=== PATIENT | female | born 1990 | race Two or more races ===

== ENCOUNTER 2016-03-23 14:21 | Inpatient (IN) | payer MEDICAID ==
[2016-03-23] MEDS ORDERED: RINGERS SOLUTION,LACTATED 1,000 ML IV PRN ×2 (15:22→17:14)
[2016-03-23 15:50] LABS: APPEARANCE,URINE CLEAR; BILIRUBIN,URINE NEGATIVE (NEGATIVE); GLUCOSE, URINE NEGATIVE (NEGATIVE); KETONES,URINE NEGATIVE (NEGATIVE); LEUKOCYTE ESTERASE,URINE LARGE (NEGATIVE); NITRITE,URINE NEGATIVE (NEGATIVE); PROTEIN,URINE NEGATIVE (NEGATIVE); URINE SPECIFIC GRAVITY 1.006; UROBILINOGEN,URINE NEGATIVE mg/dL (<2.0)
[2016-03-23 15:52] LABS: HEMATOCRIT 36.2 % (36.0-47.0); HEMOGLOBIN 12.4 g/dL (12.0-15.5); MEAN CORPUSCULAR HEMOGLOBIN 32.3 pg (27.0-33.4); MEAN CORPUSCULAR HGB CONC 34.3 g/dL (32.0-36.0); MEAN CORPUSCULAR VOLUME 94 fl (80-97); RED BLOOD COUNT 3.84 10^6/uL (3.72-5.28); RED CELL DISTRIBUTION WIDTH 12.8 % (11.5-14.0); WHITE BLOOD COUNT 9.3 10^3/uL (4.0-10.5)
--- NOTE | 2016-03-23 16:00 | L&D Flow Sheet ---
LD Flowsheet Datetime Report Generated by CPN: 03/23/2016 16:00 Datetime: 03/23/2016 15:58 Vital Signs NBP Sys/Monika/Mean (mmHg): 117 (QS system process) : 73 (QS system process) : 89 (QS system process) Pulse: 70 (QS system process) Datetime: 03/23/2016 15:28 Vital Signs NBP Sys/Monika/Mean (mmHg): 121 (QS system process) : 75 (QS system process) : 93 (QS system process) Pulse: 77 (QS system process) Datetime: 03/23/2016 14:58 Vital Signs NBP Sys/Monika/Mean (mmHg): 111 (QS system process) : 71 (QS system process) : 86 (QS system process) Pulse: 90 (QS system process)
[2016-03-23 16:06] LABS: URINE BARBITURATES SCREEN NEGATIVE; URINE METHADONE SCREEN NEGATIVE; URINE OPIATES LOW NEGATIVE; URINE PHENCYCLIDINE SCREEN NEGATIVE
--- NOTE | 2016-03-23 17:12 | L&D Progress Notes ---
PROGRESS NOTES Datetime Report Generated by CPN: 03/23/2016 17:12 PROGRESS NOTE Impression Other: IOL-stable Procedures: Sterile Vag Exam Plan: Induction Plan Other: spencer bulb Informed Consent Obtained: Vaginal Delivery; Induction of Labor; Risks, Benefits and Alternatives Discussed Informed Consent Obtained- Other: spencer bulb Vital Signs : Reviewed; Within Normal Limits Vital Signs Comments: elevated BP while in the middle of inserting spencer bulb Comment: S: pt. comfortable, agreeable to plan of care, no questions at this time O: as stated above A: IOL for IUGR-stable, Spencer bulb insertion-successful pt. tolerated well P: continue IOL, will start pitocin at 2x2x15, may have dinner, reasses as clinically indicated or earlier prn. VAGINAL EXAM Dilatation: 1 Dilatation: 1 Effacement: 50 Effacement: 50 Station: -1 Station: -2 Contractions: irreg Contractions: irreg MEMBRANES Membranes: Intact Membranes: Intact FETUS A Monitoring: External US FHR Category: Category I Estimated Weight (gm): 2557 Presentation: Vertex SIGNATURE SIGNATURE: [id number] Assignment: Geovanna Wells MD Signature: with User ID: Dennis : with User ID: Dennis
[2016-03-23] MEDS ORDERED: RINGERS SOLUTION,LACTATED 300 ML IV ONE (17:14)
[2016-03-23] MEDS ORDERED: DINOPROSTONE 10 MG VAGINAL INSERT.SR PV PRN (17:14)
[2016-03-23] MEDS ORDERED: OXYTOCIN/NORMAL SALINE 0 UNIT/0 ML RTUINJ ONE (17:28)
[2016-03-23 17:34] LABS: ALANINE AMINOTRANSFERASE 23 U/L (9-52); ALBUMIN 3.3 g/dL (3.5-5.0); ALKALINE PHOSPHATASE 146 U/L (38-126); ANION GAP 9 (5-19); ASPARTATE AMINO TRANSFERASE 34 U/L (14-36); BILIRUBIN,TOTAL 0.6 mg/dL (0.2-1.3); BLOOD UREA NITROGEN 6 mg/dL (7-20); CALCIUM 9.2 mg/dL (8.4-10.2); CARBON DIOXIDE 21 mmol/L (22-30); CHLORIDE 107 mmol/L (98-107); GLUCOSE 107 mg/dL (75-110); POTASSIUM 4.3 mmol/L (3.6-5.0); SODIUM 137.1 mmol/L (137-145); TOTAL PROTEIN 6.1 g/dL (6.3-8.2)
[2016-03-23] MEDS: OXYTOCIN/NORMAL SALINE 1,000 ML IV PRN ×2 (17:49→18:56)
--- NOTE | 2016-03-23 18:00 | L&D Flow Sheet ---
LD Flowsheet Datetime Report Generated by CPN: 03/23/2016 18:00 Datetime: 03/23/2016 17:59 NBP Sys/Monika/Mean (mmHg): 132 (QS system process) : 88 (QS system process) : 105 (QS system process) Pulse: 75 (QS system process) LaborFlag: Antepartum (QS system process) Datetime: 03/23/2016 17:50 Pitocin (milliunit): Pitocin Started (milliunits) @ 2 (Jennifer Willson RN) Datetime: 03/23/2016 17:27 NBP Sys/Monika/Mean (mmHg): 129 (QS system process) : 90 (QS system process) : 105 (QS system process) Pulse: 77 (QS system process) LaborFlag: Antepartum (QS system process) Datetime: 03/23/2016 17:02 Stage of : Antepartum (Laura Otto RN) Respirations: 18 (Laura Otto RN) Monitor Mode: External (Laura Otto RN) Frequency (min): IRREG (Laura Otto RN) Quality: Mild (Laura Otto RN) Duration (sec): 60-80 (Laura Otto RN) Resting Tone (Palpate): Relaxed (Laura Otto RN) Monitor Mode: External US (Laura Otto RN) FHR Baseline Rate : 135 (Laura Otto RN) FHR Baseline Changes: No Baseline Change (Laura Otto RN) Variability: Moderate 6-25 bpm (Laura Otto, LINDA) Accelerations: 15X15 (Laura Otto, RN) Decelerations: None (Laura Otto, LINDA) Pain Presence: None/Denies (Laura Otto RN) Pain Type: N/A (Laura Otto, LINDA) Pain Relief Measures: Comfort Measures (Laura Otto RN) Pain Coping: Talking Through Contractions (Laura Otto RN) IV/Blood Work: IV Infusing per Order (Laura Otto, LINDA) Patient Position/Activity: Right Tilt; Semi-Fowlers (Laura Otto, LINDA) Comfort Measures: Family Support (Laura Otto, LINDA) Communication: RN at Bedside; RN Reviewed Strip (Laura Otto RN) LaborFlag: Antepartum (QS system process) Datetime: 03/23/2016 16:57 NBP Sys/Monika/Mean (mmHg): 128 (QS system process) : 93 (QS system process) : 107 (QS system process) Pulse: 72 (QS system process) LaborFlag: Antepartum (QS system process) Datetime: 03/23/2016 16:32 Monitor Interventions for UA: [place] Adjusted (Laura Otto RN) Resting Tone (Palpate): Relaxed (Laura Otto RN) Monitor Mode: External US (Laura Otto RN) Monitor Interventions for FHR: Ultrasound Adjusted (Laura Otto RN) FHR Baseline Rate : 145 (Laura Otto RN) Variability: Moderate 6-25 bpm (Laura Otto, LINDA) Accelerations: 15X15 (Laura Otto RN) Decelerations: None (Laura Otto RN) Pain Scale: 0 (Sean Martin RN) Pain Presence: None/Denies (Sean Martin RN) Pain Type: N/A (Sean Martin RN) Pain Goal: 1 (Laura Otto RN) Pain Relief Measures: Comfort Measures (Laura Otto RN) Pain Coping: Talking Through Contractions (Laura Otto RN) Dilatation (cm): 1.0 (Laura Otto RN) Effacement (%): 50 (Laura Otto RN) Station: -2 (Laura Otto RN) Exam by: Rambo PAT CNM (Laura Otto, LINDA) Membrane Status: Intact (Luara Otto RN) Vaginal Bleeding: None (Sean Martin RN) Dilatation (cm): 1-2 cm (Laura Otto RN) Effacement: 40-50_ effaced (Laura Otto RN) Station: minus 2 (Laura Otto RN) Consistency: Soft (Laura Otto RN) Position: Posterior (Laura Otto RN) Total Villegas's Score: 5 (QS system process) : 5-8 = Small percentage of induction failure (QS system process) Level of Consciousness: Fully Conscious (Sean Martin RN) DTR's/Clonus: DTRs 1+; No Clonus (Laura Otto, LINDA) Headache: Denies (Sean Martin RN) Breath Sounds, Left: Clear and Equal (Laura Otto RN) Breath Sounds, Right: Clear and Equal (Sean Martin, RN) Nausea/Vomiting: Denies (Sean Martin, RN) RUQ Epigastric Pain: Denies (Sean Martin, RN) IV/Blood Work: IV Infusing per Order (Laura Otto, RN) Oxygen Method: Room Air (Laura Otto, RN) Patient Position/Activity: Right Tilt; Semi-Fowlers (Laura Otto, RN) Comfort Measures: Family Support (Laura Otto, LINDA) I/O Interventions: EATING DINNER (Laura Otto, RN) Instructional Method: Verbal; Patient Instructed; Family/Support Person Instructed; Verbalized Understanding (Laura Otto, LINDA) Plan of Care: Plan of Care Discussed; Vaginal Delivery; Induction (Laura Otto, RN) Unit Routine: [place] to Room; Call Smalls; Bed; Visiting Policy; Waiting Areas; Phone/Cell Phone Use; Photography; Unit Personnel; Consents Signed; Handwashing; Flu/Illness Precautions; Monitoring; IV Pumps; Safety/Fall Risk Prevention; Diet/Nutrition Services; Bathroom Privileges (Laura Otto, LINDA) Labor/Induction: Labor Stages; Induction (Laura Otto, RN) Pain Management: Epidural; PRN Medications; Pain Scale/Goals; Comfort Measures (Laura Otto, LINDA) Medications: Pitocin (Laura Otto, RN) Related: Common Discomforts of ; Maternal Physical Changes; Maternal Emotional Changes; Nutrition; Hydration; Activity and Rest (Laura Otto, LINDA) LaborFlag: Antepartum (QS system process) Datetime: 03/23/2016 16:30 Stage of : Antepartum (Laura Otto RN) Respirations: 16 (Laura Otto RN) Monitor Mode: External (Laura Otto RN) Monitor Interventions for UA: [place] Adjusted (Laura Otto, LINDA) Frequency (min): IRREG (Laura Otto RN) Quality: Mild (Laura Otto RN) Duration (sec): 60-80 (Laura Otto, LINDA) Resting Tone (Palpate): Relaxed (Laura Otto, LINDA) Monitor Mode: External US (Laura Otto RN) FHR Baseline Rate : 145 (Laura Otto RN) FHR Baseline Changes: No Baseline Change (Laura Otto, LINDA) Variability: Moderate 6-25 bpm (Laura Otto, LINDA) Accelerations: 15X15 (Laura Otto, LINDA) Decelerations: None (Laura Otto, LINDA) Pain Presence: None/Denies (Laura Otto, LINDA) Pain Type: N/A (Laura Otto RN) Pain Relief Measures: Comfort Measures (Laura Otto RN) Pain Coping: Talking Through Contractions (Laura Otto, LINDA) Patient Position/Activity: Right Tilt; Semi-Fowlers (Laura Otto, LINDA) Comfort Measures: Family Support (Laura Otto, LINDA) Communication: RN at Bedside; RN Reviewed Strip (Laura Otto RN) LaborFlag: Antepartum (QS system process) Datetime: 03/23/2016 16:29 NBP Sys/Monika/Mean (mmHg): 133 (QS system process) : 85 (QS system process) : 104 (QS system process) Pulse: 75 (QS system process) LaborFlag: Antepartum (QS system process) Datetime: 03/23/2016 16:28 NBP Sys/Monika/Mean (mmHg): 138 (QS system process) : 103 (QS system process) : 117 (QS system process) Pulse: 80 (QS system process) LaborFlag: Antepartum (QS system process) Datetime: 03/23/2016 16:20 Stage of : Antepartum (Laura Otto RN) IV/Blood Work: IV Infusing per Order (Laura Otto, RN) Procedures: Sterile Vag Exam (Laura Otto, RN) Patient Care Comments: COOK JAMES BULB INSERTED WITH 80 ML N/S IN EACH BULB (Laura Otto, RN) Communication: RN at Bedside; RN Reviewed Strip; Provider at Bedside (Laura Otto, RN) Datetime: 03/23/2016 16:10 I/O Interventions: Up to BR (Laura Otto, LINDA)
[2016-03-23 18:02] LABS: CHLAM PCR NOT DETECTED (NOT DETECT)
--- NOTE | 2016-03-23 18:51 | L&D Progress Notes ---
PROGRESS NOTES Datetime Report Generated by CPN: 03/23/2016 18:50 PROGRESS NOTE Impression Other: IOL-stable Procedures: Sterile Vag Exam Plan: Continue Present Management Informed Consent Obtained: Induction of Labor; Risks, Benefits and Alternatives Discussed Vital Signs : Reviewed Vital Signs Comments: mild range during contractions Comment: S: breathing with contractions, desires something for pain O: pit @ 8mu/min, see others above A: IOL-stable, progressing, spencer bulb still in place P: continue IOL, epidural prn VAGINAL EXAM Dilatation: 3 Effacement: 70 Station: -2 Contractions: 2-3 MEMBRANES Membranes: Intact FETUS A Monitoring: External US FHR Category: Category I FETUS C SIGNATURE: [id number] Assignment: Geovanna Wells MD Signature: with User ID: CaValencia : with User ID: CaValencia
[2016-03-23] MEDS ORDERED: BUPIVACAINE HCL 0.25 % INJ/PF (2.5 MG/1 ML) 30 ML VIAL ONE (19:45)
[2016-03-23] MEDS ORDERED: FENTANYL/BUPIVACAINE/NS/PF 200 MCG/100 ML RTUINJ EPI ONE (19:45)
[2016-03-23] MEDS ORDERED: EPHEDRINE SULFATE INJ 50 MG/1 ML AMPULE ONE (19:45)
--- NOTE | 2016-03-23 20:01 | L&D Flow Sheet ---
LD Flowsheet Datetime Report Generated by CPN: 03/23/2016 20:00 Datetime: 03/23/2016 19:37 I/O Interventions: Up to BR (Deya Ledgerwood, RN) Communication: RN at Bedside (Deya Ledgerwood, RN) Datetime: 03/23/2016 19:29 NBP Sys/Monika/Mean (mmHg): 135 (QS system process) : 86 (QS system process) : 107 (QS system process) Pulse: 82 (QS system process) Pain Scale: 5 (Annotations: 5 out 5 during contractions) (Deya Reyes RN) Pain Presence: Intermittent (Deya Reyes RN) Pain Type: Contraction (Deya Reyes RN) Pain Location: Abdomen (Deya Reyes RN) Pain Relief Measures: pt is bolusing for Epidural (Deya Reyes RN) Pain Coping: Breathing Through Contractions (Deya Reyes RN) Vaginal Bleeding: None (Deya Reyes RN) Level of Consciousness: Fully Conscious (Deya Reyes RN) DTR's/Clonus: DTRs 2+; No Clonus (Deya Reyes RN) Headache: Denies (Deya Reyes RN) Breath Sounds, Left: Clear and Equal (Deya Reyes RN) Breath Sounds, Right: Clear and Equal (Deya Reyes RN) Nausea/Vomiting: Denies (Deya Reyes RN) RUQ Epigastric Pain: Denies (Deya Reyes RN) Instructional Method: Demo; Verbal; Patient Instructed (Deya Reyes RN) Plan of Care: Plan of Care Discussed (Deya Reyes RN) Unit Routine: Safety/Fall Risk Prevention (Deya Reyes RN) Labor/Induction: Induction (Deya Reyes RN) Pain Management: Epidural (Deya Reyes RN) LaborFlag: Labor (QS system process) Datetime: 03/23/2016 19:22 Communication Comments: report received from Bob Otto RN (Deya Reyes RN) Datetime: 03/23/2016 19:20 Stage of : Labor (Laura Otto RN) Communication: RN at Bedside; RN Reviewed Strip (Laura Otto RN) Communication Comments: REPORT TO Erik REYES RN- CARE RELINQUISHED (Laura Otto RN) Datetime: 03/23/2016 19:14 Stage of : Labor (Laura Otto RN) Respirations: 20 (Laura Otto RN) Monitor Mode: External (Laura Otto RN) Monitor Interventions for UA: [place] Adjusted (Laura Otto RN) Frequency (min): 2-2.5 (Laura Otto, LINDA) Quality: Moderate (Laura Otto RN) Duration (sec): 60-70 (Laura Otto RN) Resting Tone (Palpate): Relaxed (Laura Otto RN) Contraction Comments: TOCO REPLACED (Laura Otto RN) Monitor Mode: External US (Laura Otto RN) Monitor Interventions for FHR: Ultrasound Adjusted (Laura Otto RN) FHR Baseline Rate : 140 (Laura Otto RN) FHR Baseline Changes: No Baseline Change (Laura Otto RN) Variability: Moderate 6-25 bpm (Laura Otto RN) Accelerations: 10X10 (Laura Otto, RN) Decelerations: None (Laura Otto, RN) Pain Relief Measures: Comfort Measures (Laura Otto RN) Pain Coping: Breathing Through Contractions (Laura Otto RN) Pitocin (milliunit): Pitocin Remains (milliunits) @ 8 (Laura Otto, RN) IV/Blood Work: New IV Bag Hung (Laura Otto, LINDA) Patient Position/Activity: Right Tilt; Low Fowlers (Laura Otto, RN) Comfort Measures: Breathing/Relaxation; Coaching; Family Support (Laura Otto, LINDA) Communication: RN at Bedside; RN Reviewed Strip (Laura Otto RN) LaborFlag: Labor (QS system process) Datetime: 03/23/2016 19:02 Stage of : Labor (Laura Otto, LINDA) Respirations: 20 (Laura Otto, LINDA) Monitor Mode: External (Laura Otto RN) Monitor Interventions for UA: [place] Adjusted (Laura Otto RN) Frequency (min): 2-2.5 (Laura Otto RN) Quality: Moderate (Laura Roz Roulund, RN) Duration (sec): 60-70 (Laura Otto, RN) Resting Tone (Palpate): Relaxed (Laura Otto, RN) Monitor Mode: External US (Laura Otto RN) Monitor Interventions for FHR: Ultrasound Adjusted (Laura Otto RN) FHR Baseline Rate : 140 (Laura Otto RN) FHR Baseline Changes: No Baseline Change (Laura Otto RN) Variability: Moderate 6-25 bpm (Laura Otto, LINDA) Accelerations: 15X15 (Laura Otto, RN) Decelerations: None (Laura Otto, RN) Pain Scale: 4 (Laura Otto, LINDA) Pain Presence: Intermittent (Laura Otto RN) Pain Type: Contraction (Laura Otto, LINDA) Pain Location: Abdomen (Laura Otto, RN) Pain Relief Measures: Comfort Measures (Laura Otto RN) Pain Coping: Breathing Through Contractions (Laura Otto, LINDA) Pitocin (milliunit): Pitocin Remains (milliunits) @ 8 (Laura Otto, RN) Patient Position/Activity: Right Tilt; Semi-Fowlers (Laura Otto, RN) Comfort Measures: Breathing/Relaxation; Coaching; Family Support (Laura Otto, RN) I/O Interventions: Up to BR (Laura Otto, LINDA) Instructional Method: Verbal; Patient Instructed; Family/Support Person Instructed; Verbalized Understanding (Laura Otto, RN) Pain Management: Epidural (Laura Otto, RN) Communication: RN at Bedside; RN Reviewed Strip (Laura Otto, RN) LaborFlag: Labor (QS system process) Datetime: 03/23/2016 19:00 NBP Sys/Monika/Mean (mmHg): 146 (QS system process) : 107 (QS system process) : 123 (QS system process) Pulse: 82 (QS system process) LaborFlag: Labor (QS system process) Datetime: 03/23/2016 18:50 Stage of : Labor (Laura Otto RN) IV/Blood Work: IV Bolus Started (Laura Otto RN) Procedure Type: EPIDURAL (Laura Otto RN) Procedure Verify: Correct Patient Identity; Agreement on Procedure to be Done; Relevant Images and Results are Properly Labeled and Displayed (Laura Otto RN) Anesthesia Plans: Epidural (Laura Otto RN) Communication: RN at Bedside; Provider Orders Received (Laura Otto RN) Notification Reason: Status Update; Labor Status; Pain (Laura Otto RN) Datetime: 03/23/2016 18:45 Stage of : Labor (Laura Otto RN) Respirations: 20 (Laura Otto RN) Monitor Mode: External (Laura Otto RN) Monitor Interventions for UA: [place] Adjusted (Laura Otto RN) Frequency (min): 2-2.5 (Laura Otto RN) Quality: Moderate (Laura Otto RN) Duration (sec): 60-70 (Laura Otto RN) Resting Tone (Palpate): Relaxed (Laura Otto RN) Monitor Mode: External US (Laura Otto RN) FHR Baseline Rate : 140 (Laura Otto RN) FHR Baseline Changes: No Baseline Change (Laura Otto RN) Variability: Moderate 6-25 bpm (Laura Otto RN) Accelerations: 15X15 (Laura Otto RN) Decelerations: None (Laura Otto RN) Pain Scale: 4 (Laura Otto RN) Pain Presence: Intermittent (Laura Otto RN) Pain Type: Contraction (Laura Otto RN) Pain Location: Abdomen (Laura Otto RN) Pain Relief Measures: Comfort Measures (Laura Otto RN) Pain Coping: Breathing Through Contractions; Requesting Pain Medication or Epidural (Laura Otto RN) Dilatation (cm): 2.5 (Laura Otto RN) Effacement (%): 70 (Laura Otto RN) Station: -2 (Laura Otto RN) Exam by: Rambo PAT CNM (Laura Otto, LINDA) Membrane Status: Intact (Laura Otto RN) Vaginal Bleeding: Normal Show (Laura Otto RN) Cervix, Consistency: Soft (Laura Otto RN) Cervix, Position: Midposition (Laura Otto RN) Pitocin (milliunit): Pitocin Remains (milliunits) @ 8 (Laura Otto RN) IV/Blood Work: Labs Drawn with IV Start (Laura Otto RN) Patient Position/Activity: Right Tilt; High Fowlers (Laura Otto, LINDA) Comfort Measures: Breathing/Relaxation; Coaching; Family Support (Laura Otto RN) Communication: RN at Bedside; RN Reviewed Strip; Provider at Bedside (Laura Otto RN) LaborFlag: Labor (QS system process) Datetime: 03/23/2016 18:38 NBP Sys/Monika/Mean (mmHg): 143 (QS system process) : 96 (QS system process) : 117 (QS system process) Pulse: 73 (QS system process) LaborFlag: Labor (QS system process) Datetime: 03/23/2016 18:30 Stage of : Labor (Laura Otto RN) Respirations: 18 (Laura Roz Roulund, RN) Monitor Mode: External (Laura Otto, LINDA) Monitor Interventions for UA: [place] Adjusted (Laura Otto, RN) Frequency (min): 2-3 (Laura Otto RN) Quality: Moderate (Laura Otto RN) Duration (sec): 60-70 (Laura Otto, RN) Resting Tone (Palpate): Relaxed (Laura Otto, RN) Monitor Mode: External US (Laura Otto RN) Monitor Interventions for FHR: Ultrasound Adjusted (Laura Otto RN) FHR Baseline Rate : 135 (Laura Otto, LINDA) FHR Baseline Changes: No Baseline Change (Laura Otto RN) Variability: Moderate 6-25 bpm (Laura Otto, LINDA) Accelerations: 15X15 (Laura Otto, LINDA) Decelerations: None (Laura Otto RN) Pain Scale: 2 (Laura Otto RN) Pain Presence: Intermittent (Laura Otto RN) Pain Type: Contraction (Laura Otto, LINDA) Pain Location: Abdomen (Laura Otto, LINDA) Pain Relief Measures: Comfort Measures (Laura Otto RN) Pain Coping: Breathing Through Contractions (Laura Otto, LINDA) Pitocin (milliunit): Pitocin Increased to (milliunits) @ 8 (Laura Otto, RN) Patient Position/Activity: Right Tilt; High Fowlers (Laura Otto, RN) Comfort Measures: Breathing/Relaxation; Family Support (Laura Otto, RN) I/O Interventions: Up to BR (Laura Otto, LINDA) Communication: RN at Bedside; RN Reviewed Strip (Laura Otto RN) LaborFlag: Labor (QS system process) Datetime: 03/23/2016 18:29 NBP Sys/Monika/Mean (mmHg): 151 (QS system process) : 108 (QS system process) : 122 (QS system process) Pulse: 81 (QS system process) LaborFlag: Labor (QS system process) Datetime: 03/23/2016 18:15 Stage of : Labor (Laura Otto RN) Respirations: 18 (Laura Otto RN) Monitor Mode: External (Laura Otto RN) Monitor Interventions for UA: [place] Adjusted (Laura Otto RN) Frequency (min): 2-4 (Laura Otto RN) Quality: Moderate (Laura Otto RN) Duration (sec): 60-70 (Laura Otto RN) Resting Tone (Palpate): Relaxed (Laura Otto RN) Monitor Mode: External US (Laura Otto RN) Monitor Interventions for FHR: Ultrasound Adjusted (Laura Otto RN) FHR Baseline Rate : 135 (Laura Otto RN) FHR Baseline Changes: No Baseline Change (Laura Otto RN) Variability: Moderate 6-25 bpm (Laura Otto RN) Accelerations: 15X15 (Laura Otto, LINDA) Decelerations: None (Laura Otto, RN) Pain Scale: 2 (Laura Otto, LINDA) Pain Presence: Intermittent (Laura Otto, LINDA) Pain Type: Contraction (Laura Otto, LINDA) Pain Location: Abdomen (Laura Otto, RN) Pain Relief Measures: Comfort Measures (Laura Otto, RN) Pain Coping: Breathing Through Contractions (Laura Otto, LINDA) Pitocin (milliunit): Pitocin Increased to (milliunits) @ 6 (Laura Otto, RN) IV/Blood Work: IV Infusing per Order (Laura Otto, LINDA) Patient Position/Activity: Right Tilt; High Fowlers (Laura Otto, RN) Comfort Measures: Breathing/Relaxation; Coaching; Family Support (Laura Otto, LINDA) Instructional Method: Verbal; Patient Instructed; Family/Support Person Instructed; Verbalized Understanding (Laura Otto, LINDA) Pain Management: Pain Scale/Goals; Comfort Measures (Laura Otto, RN) Teaching Comments: breathing _ relaxation techniques (Laura Otto, LINDA) Communication: RN at Bedside; RN Reviewed Strip (Laura Otto, LINDA) LaborFlag: Labor (QS system process) Datetime: 03/23/2016 18:00 Stage of : Antepartum (Laura Otto RN) Respirations: 18 (Laura Otto, RN) Monitor Mode: External (Laura Otto RN) Frequency (min): IRREG (Laura Otto RN) Quality: Mild (Laura Otto RN) Duration (sec): 60-80 (Laura Otto RN) Resting Tone (Palpate): Relaxed (Laura Otto RN) Monitor Mode: External US (Laura Otto RN) FHR Baseline Rate : 135 (Laura Otto RN) FHR Baseline Changes: No Baseline Change (Laura Otto RN) Variability: Moderate 6-25 bpm (Laura Otto RN) Accelerations: 15X15 (Laura Otto RN) Decelerations: None (Laura Otto RN) Pain Scale: 0 (Laura Otto RN) Pain Presence: None/Denies (Laura Otto RN) Pain Type: N/A (Laura Otto RN) Pain Relief Measures: Comfort Measures (Laura Otto RN) Pain Coping: Talking Through Contractions (Laura Otto RN) Pitocin (milliunit): Pitocin Increased to (milliunits) @ 4 (Laura Otto, LINDA) IV/Blood Work: IV Infusing per Order (Laura Otto, LINDA) Patient Position/Activity: Right Tilt; High Fowlers (Laura Otto, LINDA) Comfort Measures: Family Support (Laura Otto RN) Communication: RN at Bedside; RN Reviewed Strip (Laura Otto RN) LaborFlag: Antepartum (QS system process)
--- NOTE | 2016-03-23 22:00 | L&D Flow Sheet ---
LD Flowsheet Datetime Report Generated by CPN: 03/23/2016 22:00 Datetime: 03/23/2016 21:57 NBP Sys/Monika/Mean (mmHg): 117 (QS system process) : 72 (QS system process) : 90 (QS system process) Pulse: 83 (QS system process) LaborFlag: Labor (QS system process) Datetime: 03/23/2016 21:43 NBP Sys/Monika/Mean (mmHg): 120 (QS system process) : 78 (QS system process) : 92 (QS system process) Pulse: 74 (QS system process) Respirations: 15 (Deya Hayward RN) LaborFlag: Labor (QS system process) Datetime: 03/23/2016 21:41 Membrane Status: Ruptured (Deya Hayward RN) Membranes Rupture Method: Artificial (Deya Hayward RN) Amniotic Fluid Color: Clear (Deya Hayward RN) Amniotic Fluid Amount: Moderate (Deya Hayward RN) Amniotic Fluid Odor: Normal (Deya Hayward RN) Datetime: 03/23/2016 21:40 Dilatation (cm): 6.5 (Deya Hayward RN) Effacement (%): 75 (Deya Hayward RN) Station: -2 (Deya Hayward RN) Exam by: Dr Wells (Deya Hayward RN) Patient Care Comments: Wade Bulb is out. (Deya Hayward RN) Datetime: 03/23/2016 21:30 Monitor Mode: External; Palpation (Deya Ledgerwood, RN) Frequency (min): 2-2.5 (Deya Ledgerwood, RN) Quality: Moderate (Deya Ledgerwood, RN) Duration (sec): 50-70 (Deya Ledgerwood, RN) Duration Criteria: Less than Two 120 Second Contractions (Deya Ledgerwood, RN) Pattern: Normal: <= 5 Contractions in 10 Minutes (Deya Ledgerwood, RN) Resting Tone (Palpate): Relaxed (Deya Ledgerwood, RN) Monitor Mode: External US (Deya Ledgerwood, RN) FHR Baseline Rate : 135 (Deya Ledgerwood, RN) FHR Baseline Changes: No Baseline Change (Deya Ledgerwood, RN) Variability: Moderate 6-25 bpm (Deya Ledgerwood, RN) Accelerations: 15X15 (Deya Ledgerwood, RN) Decelerations: None (Deya Ledgerwood, RN) Pitocin (milliunit): Pitocin Remains (milliunits) @ 8 (Deya Ledgerwood, RN) Datetime: 03/23/2016 21:29 NBP Sys/Monika/Mean (mmHg): 126 (QS system process) : 74 (QS system process) : 93 (QS system process) Pulse: 72 (QS system process) LaborFlag: Labor (QS system process) Datetime: 03/23/2016 21:15 Monitor Mode: External; Palpation (Deya Ledgerwood, RN) Frequency (min): 1.5-3 (Deya Ledgerwood, RN) Quality: Moderate (Deya Ledgerwood, RN) Duration (sec): 40-60 (Edya Ledgerwood, RN) Duration Criteria: Less than Two 120 Second Contractions (Deya Ledgerwood, RN) Pattern: Normal: <= 5 Contractions in 10 Minutes (Deya Ledgerwood, RN) Resting Tone (Palpate): Relaxed (Deya Ledgerwood, RN) Monitor Mode: External US (Deya Ledgerwood, RN) FHR Baseline Rate : 140 (Deya Ledgerwood, RN) FHR Baseline Changes: No Baseline Change (Deya Ledgerwood, RN) Variability: Moderate 6-25 bpm (Deya Ledgerwood, RN) Accelerations: 15X15 (Deya Ledgerwood, RN) Decelerations: None (Deya Ledgerwood, RN) Pitocin (milliunit): Pitocin Remains (milliunits) @ 8 (Deya Ledgerwood, RN) Datetime: 03/23/2016 21:11 NBP Sys/Monika/Mean (mmHg): 130 (QS system process) : 78 (QS system process) : 99 (QS system process) Pulse: 69 (QS system process) LaborFlag: Labor (QS system process) Datetime: 03/23/2016 21:06 NBP Sys/Monika/Mean (mmHg): 131 (QS system process) : 67 (QS system process) : 91 (QS system process) Pulse: 72 (QS system process) LaborFlag: Labor (QS system process) Datetime: 03/23/2016 21:00 NBP Sys/Monika/Mean (mmHg): 125 (QS system process) : 73 (QS system process) : 94 (QS system process) Pulse: 74 (QS system process) Monitor Mode: External; Palpation (Deya Hayward RN) Frequency (min): 2.5-3.5 (Deya Ledgerwood, RN) Quality: Moderate (Deya Ledgerwood, RN) Duration (sec): 40-60 (Deya Ledgerwood, RN) Duration Criteria: Less than Two 120 Second Contractions (Deya Ledgerwood, RN) Pattern: Normal: <= 5 Contractions in 10 Minutes (Deya Ledgerwood, RN) Resting Tone (Palpate): Relaxed (Deya Ledgerwood, RN) Monitor Mode: External US (Deya Ledgerwood, RN) FHR Baseline Rate : 135 (Deya Ledgerwood, RN) FHR Baseline Changes: No Baseline Change (Deya Ledgerwood, RN) Variability: Moderate 6-25 bpm (Deya Ledgerwood, RN) Accelerations: 15X15 (Deya Ledgerwood, RN) Decelerations: None (Deya Ledgerwood, RN) Pitocin (milliunit): Pitocin Remains (milliunits) @ 8 (Deya Ledgerwood, RN) LaborFlag: Labor (QS system process) Datetime: 03/23/2016 20:56 NBP Sys/Monika/Mean (mmHg): 122 (QS system process) : 67 (QS system process) : 89 (QS system process) Pulse: 63 (QS system process) LaborFlag: Labor (QS system process) Datetime: 03/23/2016 20:49 NBP Sys/Monika/Mean (mmHg): 129 (QS system process) : 60 (QS system process) : 86 (QS system process) Pulse: 58 (QS system process) LaborFlag: Labor (QS system process) Datetime: 03/23/2016 20:46 NBP Sys/Monika/Mean (mmHg): 131 (QS system process) : 61 (QS system process) : 88 (QS system process) Pulse: 58 (QS system process) LaborFlag: Labor (QS system process) Datetime: 03/23/2016 20:45 Monitor Mode: External; Palpation (Deya Hayward RN) Frequency (min): 2-2.5 (Deya Hayward RN) Quality: Moderate (Deya Hayward RN) Duration (sec): 50-60 (Deya Ledgerwood, RN) Duration Criteria: Less than Two 120 Second Contractions (Deya Ledgerwood, RN) Pattern: Normal: <= 5 Contractions in 10 Minutes (Deya Ledgerwood, RN) Resting Tone (Palpate): Relaxed (Deya Ledgerwood, RN) Monitor Mode: External US (Deya Ledgerwood, RN) FHR Baseline Rate : 135 (Deya Ledgerwood, RN) FHR Baseline Changes: No Baseline Change (Deya Ledgerwood, RN) Variability: Moderate 6-25 bpm (Deya Ledgerwood, RN) Accelerations: 15X15 (Deya Ledgerwood, RN) Decelerations: Variable (Deya Ledgerwood, RN) Pitocin (milliunit): Pitocin Remains (milliunits) @ 8 (Deya Ledgerwood, RN) Datetime: 03/23/2016 20:39 NBP Sys/Monika/Mean (mmHg): 117 (QS system process) : 54 (QS system process) : 78 (QS system process) Pulse: 67 (QS system process) LaborFlag: Labor (QS system process) Datetime: 03/23/2016 20:38 NBP Sys/Monika/Mean (mmHg): 122 (QS system process) : 58 (QS system process) : 83 (QS system process) Pulse: 65 (QS system process) LaborFlag: Labor (QS system process) Datetime: 03/23/2016 20:37 NBP Sys/Monika/Mean (mmHg): 118 (QS system process) : 57 (QS system process) : 82 (QS system process) Pulse: 63 (QS system process) LaborFlag: Labor (QS system process) Datetime: 03/23/2016 20:36 NBP Sys/Monika/Mean (mmHg): 118 (QS system process) : 58 (QS system process) : 83 (QS system process) Pulse: 58 (QS system process) LaborFlag: Labor (QS system process) Datetime: 03/23/2016 20:35 NBP Sys/Monika/Mean (mmHg): 124 (QS system process) : 57 (QS system process) : 82 (QS system process) Pulse: 64 (QS system process) LaborFlag: Labor (QS system process) Datetime: 03/23/2016 20:34 NBP Sys/Monika/Mean (mmHg): 115 (QS system process) : 56 (QS system process) : 80 (QS system process) Pulse: 55 (QS system process) LaborFlag: Labor (QS system process) Datetime: 03/23/2016 20:33 NBP Sys/Monika/Mean (mmHg): 112 (QS system process) : 55 (QS system process) : 77 (QS system process) Pulse: 54 (QS system process) LaborFlag: Labor (QS system process) Datetime: 03/23/2016 20:32 NBP Sys/Monika/Mean (mmHg): 127 (QS system process) : 65 (QS system process) : 90 (QS system process) Pulse: 52 (QS system process) LaborFlag: Labor (QS system process) Datetime: 03/23/2016 20:31 NBP Sys/Monika/Mean (mmHg): 118 (QS system process) : 63 (QS system process) : 84 (QS system process) Pulse: 67 (QS system process) LaborFlag: Labor (QS system process) Datetime: 03/23/2016 20:30 NBP Sys/Monika/Mean (mmHg): 138 (QS system process) : 73 (QS system process) : 96 (QS system process) Pulse: 71 (QS system process) Monitor Mode: External; Palpation (Deya Hayward, RN) Frequency (min): 2.5-4 (Deya Hayward, RN) Quality: Moderate (Deya Hayward, RN) Duration (sec): 60-70 (Deya Hayward, RN) Duration Criteria: Less than Two 120 Second Contractions (Deya Hayward, RN) Pattern: Normal: <= 5 Contractions in 10 Minutes (Deya Hayward, RN) Resting Tone (Palpate): Relaxed (Deya Hayward, RN) Monitor Mode: External US (Deya Hayward, RN) FHR Baseline Rate : 135 (Deya Hayward, RN) FHR Baseline Changes: No Baseline Change (Deya Hayward, RN) Variability: Moderate 6-25 bpm (Deya Hayward, RN) Accelerations: None (Deya Hayward, RN) Decelerations: None (Deya Hayward, RN) Pitocin (milliunit): Pitocin Remains (milliunits) @ 8 (Deya Hayward, RN) I/O Interventions: Wade Cath Inserted (Deya Hayward, RN) Patient Care Comments: 15 F by O Mainor MCKEON (Deya Hayward, RN) LaborFlag: Labor (QS system process) Datetime: 03/23/2016 20:29 NBP Sys/Monika/Mean (mmHg): 121 (QS system process) : 68 (QS system process) : 88 (QS system process) Pulse: 61 (QS system process) LaborFlag: Labor (QS system process) Datetime: 03/23/2016 20:28 Pulse: 65 (QS system process) SpO2 (%): 98 (QS system process) LaborFlag: Labor (QS system process) Datetime: 03/23/2016 20:27 NBP Sys/Monika/Mean (mmHg): 143 (QS system process) : 65 (QS system process) : 93 (QS system process) Pulse: 68 (QS system process) LaborFlag: Labor (QS system process) Datetime: 03/23/2016 20:25 NBP Sys/Monika/Mean (mmHg): 132 (QS system process) : 64 (QS system process) : 91 (QS system process) Pulse: 70 (QS system process) LaborFlag: Labor (QS system process) Datetime: 03/23/2016 20:24 NBP Sys/Monika/Mean (mmHg): 131 (QS system process) : 63 (QS system process) : 91 (QS system process) Pulse: 75 (QS system process) LaborFlag: Labor (QS system process) Datetime: 03/23/2016 20:23 NBP Sys/Monika/Mean (mmHg): 144 (QS system process) : 68 (QS system process) : 98 (QS system process) Pulse: 76 (QS system process) Pulse: 65 (QS system process) SpO2 (%): 98 (QS system process) Epidural Procedure: Test Dose (Deya Hayward RN) LaborFlag: Labor (QS system process) Datetime: 03/23/2016 20:22 NBP Sys/Monika/Mean (mmHg): 144 (QS system process) : 67 (QS system process) : 96 (QS system process) Pulse: 62 (QS system process) LaborFlag: Labor (QS system process) Datetime: 03/23/2016 20:21 Anesthesia Plans: Epidural (Deya Ledgerwood, RN) Epidural Positioning: Sitting (Deya Ledgerwood, RN) Datetime: 03/23/2016 20:18 Pulse: 62 (QS system process) SpO2 (%): 99 (QS system process) LaborFlag: Labor (QS system process) Datetime: 03/23/2016 20:16 NBP Sys/Monika/Mean (mmHg): 147 (QS system process) : 68 (QS system process) : 98 (QS system process) Pulse: 54 (QS system process) Communication: Provider at Bedside (Deya Hayward RN) Communication Comments: Dr Ragland at bedside (Deya Hayward RN) LaborFlag: Labor (QS system process) Datetime: 03/23/2016 20:15 NBP Sys/Monika/Mean (mmHg): 147 (QS system process) : 62 (QS system process) : 89 (QS system process) Pulse: 70 (QS system process) Monitor Mode: External; Palpation (Deya Hayward RN) Frequency (min): 1.5-2.5 (Deya Hayward RN) Quality: Moderate (Deya Hayward RN) Duration (sec): 70-80 (Deya Ledgerwood, RN) Duration Criteria: Less than Two 120 Second Contractions (Deya Ledgerwood, RN) Pattern: Normal: <= 5 Contractions in 10 Minutes (Deya Ledgerwood, RN) Resting Tone (Palpate): Relaxed (Deya Ledgerwood, RN) Monitor Mode: External US (Deya Ledgerwood, RN) FHR Baseline Rate : 145 (Deya Ledgerwood, RN) FHR Baseline Changes: No Baseline Change (Deya Ledgerwood, RN) Variability: Moderate 6-25 bpm (Deya Ledgerwood, RN) Accelerations: None (Deya Ledgerwood, RN) Decelerations: None (Deya Ledgerwood, RN) Pitocin (milliunit): Pitocin Remains (milliunits) @ 8 (Deya Ledgerwood, RN) LaborFlag: Labor (QS system process) Datetime: 03/23/2016 20:13 NBP Sys/Monika/Mean (mmHg): 136 (QS system process) NBP Sys/Monika/Mean (mmHg): 139 (QS system process) : 84 (QS system process) : 80 (QS system process) : 102 (QS system process) : 105 (QS system process) Pulse: 76 (QS system process) Pulse: 68 (QS system process) Pulse: 69 (QS system process) SpO2 (%): 96 (QS system process) LaborFlag: Labor (QS system process) Datetime: 03/23/2016 20:12 NBP Sys/Monika/Mean (mmHg): 151 (QS system process) : 73 (QS system process) : 102 (QS system process) Pulse: 64 (QS system process) LaborFlag: Labor (QS system process) Datetime: 03/23/2016 20:10 NBP Sys/Monika/Mean (mmHg): 150 (QS system process) : 72 (QS system process) : 104 (QS system process) Pulse: 71 (QS system process) LaborFlag: Labor (QS system process) Datetime: 03/23/2016 20:09 NBP Sys/Monika/Mean (mmHg): 149 (QS system process) : 75 (QS system process) : 105 (QS system process) Pulse: 70 (QS system process) LaborFlag: Labor (QS system process) Datetime: 03/23/2016 20:08 NBP Sys/Monika/Mean (mmHg): 175 (QS system process) : 82 (QS system process) : 111 (QS system process) Pulse: 59 (QS system process) Pulse: 77 (QS system process) SpO2 (%): 97 (QS system process) Procedure Verify: Correct Patient Identity; Correct Side and Site are Marked; Accurate Procedure Consent Form; Correct Patient Position (Deya Hayward RN) LaborFlag: Labor (QS system process) Datetime: 03/23/2016 20:06 NBP Sys/Monika/Mean (mmHg): 160 (QS system process) : 95 (QS system process) : 116 (QS system process) Pulse: 73 (QS system process) LaborFlag: Labor (QS system process) Datetime: 03/23/2016 20:05 NBP Sys/Monika/Mean (mmHg): 169 (QS system process) : 90 (QS system process) : 122 (QS system process) Pulse: 77 (QS system process) LaborFlag: Labor (QS system process) Datetime: 03/23/2016 20:04 NBP Sys/Monika/Mean (mmHg): 155 (QS system process) : 83 (QS system process) : 114 (QS system process) Pulse: 71 (QS system process) LaborFlag: Labor (QS system process) Datetime: 03/23/2016 20:03 Pulse: 71 (QS system process) SpO2 (%): 98 (QS system process) LaborFlag: Labor (QS system process) Datetime: 03/23/2016 20:01 Procedure Verify: Correct Patient Identity; Correct Side and Site are Marked; Accurate Procedure Consent Form; Correct Patient Position (Deya Hayward, RN) Anesthesia Plans: Epidural (Deya Ledgerwood, RN) Epidural Positioning: Sitting (Deya Ledgerwood, RN) Datetime: 03/23/2016 20:00 NBP Sys/Monika/Mean (mmHg): 136 (QS system process) : 79 (QS system process) : 105 (QS system process) Pulse: 56 (QS system process) Monitor Mode: External; Palpation (Deya Hayward, RN) Frequency (min): 2-2.5 (Deya Hayward, RN) Quality: Moderate (Deya Aguiargerdiomedes, RN) Duration (sec): 70-80 (Deyastefania Aguiargerdiomedes, RN) Duration Criteria: Less than Two 120 Second Contractions (Deya Hayward, RN) Pattern: Normal: <= 5 Contractions in 10 Minutes (Deyastefania Hayward, RN) Resting Tone (Palpate): Non Relaxed (Deya Hayward, RN) Monitor Mode: External US (Deya Hayward, RN) FHR Baseline Rate : 135 (Deya Hayward RN) FHR Baseline Changes: No Baseline Change (Deya Hayward RN) Variability: Moderate 6-25 bpm (Deya Hayward RN) Accelerations: 15X15 (Deya Hayward RN) Decelerations: None (Deya Hayward RN) Pitocin (milliunit): Pitocin Remains (milliunits) @ 8 (Deya Hayward RN) LaborFlag: Labor (QS system process)
[2016-03-24] MEDS ORDERED: LIDOCAINE 1% INJ-PF (10 MG/ML) 30 ML SDV ONE (00:18)
[2016-03-24] MEDS ORDERED: OXYTOCIN/NORMAL SALINE 20 UNIT/1,000 ML RTUINJ ONE (00:18)
[2016-03-24] MEDS ORDERED: MISOPROSTOL 0.2 MG TABLET ONE (00:18)
[2016-03-24] MEDS ORDERED: ACETAMINOPHEN WITH CODEINE #3 TABLET PO PRN (01:05)
[2016-03-24] MEDS ORDERED: DIBUCAINE 1% OINTMENT 28 GM TP PRN (01:05)
[2016-03-24] MEDS ORDERED: DIPH/PERTUSS(ACELL)/TETANUS VAC/PF 0.5 ML SYR (>=10YO) IM PRN (01:05)
[2016-03-24] MEDS ORDERED: MEASLES,MUMPS&RUBELLA VACC/PF 0.5 ML VIAL SUBCUT PRN (01:05)
[2016-03-24] MEDS ORDERED: BENZOCAINE/MENTHOL AEROSOL SPRAY 56 ML TOP PRN (01:05)
[2016-03-24] MEDS ORDERED: ZOLPIDEM TARTRATE 5 MG TABLET PO PRN (01:05)
[2016-03-24] MEDS ORDERED: OXYTOCIN/NORMAL SALINE 20 UNIT/1,000 ML RTUINJ IV SCH (01:05)
--- NOTE | 2016-03-24 02:49 | Admission Physical ---
Datetime Report Generated by CPN: 03/24/2016 02:48 CURRENT ADMISSION Hx Assessment: The History has been Reviewed and is Current Chief Complaint: Scheduled Induction of Labor Indication for Induction: IUGR Admit Plan: Admit to Unit; Initiate Labor Induction Protocol ALLERGIES Medication Allergies: No Medication Allergies: No Known Allergies (03/23/2016) Latex: No Latex Allergies Food Allergies: None Environmental Allergies: None OBSTETRICAL HISTORY EDC: 03/30/2016 00:00 : 1 Para: 0 Term: 0 : 0 SAB: 0 IAB: 0 Ectopic: 0 Livin Cesareans: 0 VBACs: 0 Multiple Births: 0 Gestational Diabetes: No Rh Sensitization: No Incompetent Cervix: No [place]: No Infertility: No ART Treatment: No Uterine Anomaly: No IUGR: No Hx Previous C/S: No Macrosomia: No Hx Loss/Stillborn: No PIH: No Hx : No Placenta Previa/Abruption: No Depression/PP Depression: Yes PTL/PROM: No Post Hemorrhage: Unknown Current Procedures: Ultrasound; NST SEE RECORDS Alcohol: Yes Alcohol Frequency: Occasional Marijuana : No Cocaine: No Other Illicit Drugs: Yes Illicit Drug Comments: Hydrocodone, used occassionally before Subutex, last used right at the beginning of around July Cigarettes: Former Smoker. [id number] Cigarette Frequency: < 5 per day Advised to Stop: No MEDICAL HISTORY Diabetes: No Blood Transfusion: No Pulmonary Disease (Asthma, TB): No Breast Disease: No Hypertension: No Dry Cleaner Hand Surgery: No Heart Disease: No Hosp/Surgery: Yes Autoimmune Disorder: No Anesthetic Complications: No Kidney Disease: No Abnormal Pap Smear: No Neuro/Epilepsy: No Psychiatric Disorders: Yes Other Medical Diseases: No Hepatitis/Liver Disease: Yes Significant Family History: No Varicosities/Phlebitis: No Trauma/Violence : No Thyroid Dysfunction: No Medical History Comments: Bipolar disorder, Depression, Hepatitis C, Tonsillectomy, [place] teeth removal INFECTIOUS HISTORY Gonorrhea: No Genital Herpes: Yes Chlamydia: No Tuberculosis: No Syphilis: No Hepatitis: Yes HIV/AIDS Exposure: No Rash or Viral Illness: No HPV: No Infectious History Comments: Genital Herpes, currently takes Valtrex QD, last outbreak was in JAN 2016; HEPATITIS C PHYSICAL EXAM General: Normal HEENT: Normal Neurologic: Normal Thyroid: Deferred Heart: Normal Lungs: Normal Breast: Deferred Back: Normal Abdomen: Normal Genitourinary Exam: Normal Extremities: Normal DTRs: Normal Pelvic Type: Adequate Physical Exam Comments: Large amount of vaginal discharge resembling yeast present in vagina. Speculum exam revealed no current HSV infection. Samples obtained for wetprep and gc/chlam. Vital Signs: Reviewed; Within Normal Limits VAGINAL EXAM Dilatation: 3 Effacement: 70 Station: -2 Contraction Comments: 2-3 MEMBRANES Membranes: Intact FETUS A EGA: 39.0 Monitoring: External US Decelerations: None FHR Category: Category I Estimated Weight (gm): 2557 Presentation: Vertex Admit Comment: 25yo at 39wga into L_D for IOL due to IUGR( <5%ile). O neg, GBS neg, Rubella Immune Pt. has significant medical history that includes +Hep. C, +HSV with last outbreak at 32wga (currently on valtrex), Anxiety, Bipolar disease, PTSD and depression for which she takes 75mg of seraquel daily ( aware of cat C. in ). Pt. also with history of alcohol and street drug use ( was on mollies and narcotics then began obtaining subutex off the streets but reports no use since early in ) Attended in patient detox 10/24. Elevated 1hr glucose but normal 3hr. Transfer in from [facility] at 28wga. EFW 2557g. PLANS FOR LABOR AND DELIVERY Labor and Delivery: None Pain Management: Epidural Feeding Preference: Breast Benefit of Breast Feed Discussed: Yes Circumcision: N/A INFORMED CONSENT Informed Consent Obtained: Induction of Labor; Risks, Benefits and Alternatives Discussed Informed Consent Obtained- Other: spencer bulb Assignment: Geovanna Wells MD Signature: with User ID: [email or web address] : with User ID: [email or web address]
[2016-03-24] MEDS: ACETAMINOPHEN WITH CODEINE #3 TABLET PO PRN ×4 (02:59→20:04)
--- NOTE | 2016-03-24 03:15 | Delivery Summary ---
Del Sum A-C Datetime Report Generated by CPN: 03/24/2016 03:14 ADMISSION DATA Chief Complaint: Scheduled Induction of Labor Indication for Induction: IUGR Admission Impression: Term, Intrauterine Admit Provider Comments: 25yo at 39wga into L_D for IOL due to IUGR( <5%ile). O neg, GBS neg, Rubella Immune Pt. has significant medical history that includes +Hep. C, +HSV with last outbreak at 32wga (currently on valtrex), Anxiety, Bipolar disease, PTSD and depression for which she takes 75mg of seraquel daily ( aware of cat C. in ). Pt. also with history of alcohol and street drug use ( was on mollies and narcotics then began obtaining subutex off the streets but reports no use since early in ) Attended in patient detox 10/24. Elevated 1hr glucose but normal 3hr. Transfer in from [facility] at 28wga. EFW 2557g. DELIVERY PERSONNEL Delivery Doctor:: Geovanna Wells MD Labor and Delivery Nurse:: Deya Hayward RN Nursery Nurse:: Poonam Galvan RN Nursery Nurse:: Zena Wheatley RN Lead Network Architect/FIELD CROP FARMER: Robina Cole, ST MATERNAL INFORMATION Delivery Anesthesia: Epidural Medications After Delivery: Pitocin Drip 20 Units/1000ml NSS Estimated Blood Loss (ml): 250 Maternal Complications: None Provider Comments: VFI delivered in VERONICA presentation. No nuchal cord. Shoulders and body delivered w/o difficulty. Compound Left arm during delivery. Cord doubly clamped and cut and infant to maternal abdomen for skin to skin. Placenta delivered intact spontaneously. FF at U. Placenta sent for pathology due to IUGR. Weight pending approx 5#5oz. Apgars 9/9. Mother and baby stable upon provider leaving the room. LABOR SUMMARY EDC: 03/30/2016 00:00 No. Babies in Womb: 1 Attempted: No Labor Anesthesia: Epidural LABOR INFORMATION Reason for Induction: Intrauterine Growth Retardation Onset of Labor: 03/23/2016 21:41 Complete Dilatation: 03/24/2016 00:15 Cervical Ripening Agents: Wade Balloon Oxytocin: Induction Group B Beta Strep: neg Antibiotics # of Doses: 0 Steroids Given: None Reason Steroids Not Administered: Not Applicable MEMBRANES Membranes Rupture Method: Artificial Rupture of Membranes: 03/23/2016 21:41 Length of Rupture (hr): 2.92 Amniotic Fluid Color: Clear Amniotic Fluid Amount: Moderate Amniotic Fluid Odor: Normal STAGES OF LABOR Stage 1 hr: 2 Stage 1 min: 34 Stage 2 hr: 0 Stage 2 min: 21 Stage 3 hr: 0 Stage 3 min: 2 Total Time in Labor hr: 2 Total Time in Labor min: 57 VAGINAL DELIVERY Episiotomy: Left Mediolateral Laceration Type: Periurethral Other Laceration: Right vaginal sidewall _ Left periurethral Laceration Repair: Yes Laceration Repair Note: Right vaginal sidewall laceration and left periclitoral laceration repaired with good hemostasis. Sponge Count Correct: N/A Sharps Count Correct: Yes CSECTION DELIVERY Primary Indication: N/A Secondary Indication: N/A CSection Incidence: N/A Labor: N/A Elective: N/A CSection Incision: N/A BABY A INFORMATION Delivery Date/Time: 03/24/2016 00:36 Method of Delivery: Vaginal Born in Route : No : N/A Forceps: N/A Vacuum Extraction: N/A Shoulder Dystocia : No PRESENTATION/POSITION BABY A Presentation: Cephalic Cephalic Presentation: Vertex Vertex Position: Left Occipital Transverse Breech Presentation: N/A PLACENTA INFORMATION BABY A Placenta Delivery Time : 03/24/2016 00:38 Placenta Method of Delivery: Spontaneous Placenta Status: Delivered SCORES BABY A Heart Rate 1 min: >100 bpm Resp Effort 1 min: Good Cry Reflex Irritability 1 min: Cough or Sneeze or Pulls Away Muscle Tone 1 min: Active Motion Color 1 min: Body [place], Extremities Blue Resuscitation Effort 1 min: Tactile Stimulation SCORE 1 MIN: 9 Heart Rate 5 min: >100 bpm Resp Effort 5 min: Good Cry Reflex Irritability 5 min: Cough or Sneeze or Pulls Away Muscle Tone 5 min: Active Motion Color 5 min: Body [place], Extremities Blue Resuscitation Effort 5 min: Tactile Stimulation SCORE 5 MIN: 9 INFORMATION BABY A Gestational Age at Delivery: 39.1 Gestational Status: Full Term- 39- 40.6 Weeks Infant Outcome : Liveborn Infant Condition : Stable Infant Sex: Female IDENTIFICATION BABY A Infant Verification Date/Time: 03/24/2016 00:45 ID Band Number: [id number] Mother's Name Verified: Yes RN Verifying : Bbo Cazares, RN Additional Verifying Personnel: D Bia, FIELD [employer] F[employer]ER WEIGHT/LENGTH BABY A Birthweight (gm): 2420 Infant Weight (lb): 5 Infant Weight (oz): 5 Length (in): 18.50 Infant Length (cm): 46.99 CORD INFORMATION BABY A No. Cord Vessels: 3 Nuchal Cord : N/A Cord Blood Taken: Yes-For Eval (Mom's Blood Type - or O+) Infant Suction: None ASSESSMENT BABY A Infant Complications: Other Infant Complications- Other: IUGR Physical Findings at Delivery: Within Normal Limits Infant Respirations: Appears Normal Skin to Skin: Yes Skin to Skin Time (min): 60 Second Butler/ALS Called : No Care By: Henok Galvan RN Transferred To: Remains with Mother BABY B INFORMATION : N/A SIGNATURES Signature: with User ID: [email or web address]
[2016-03-24] MEDS ORDERED: INFLUENZA ADLT QUAD (36MOS+) 2016-17 VAC 0.5 ML SYR IM PRN (03:32)
[2016-03-24] MEDS: IBUPROFEN 800 MG TABLET PO SCH ×3 (05:37→21:15)
--- NOTE | 2016-03-24 07:01 | L&D Flow Sheet ---
LD Flowsheet Datetime Report Generated by CPN: 03/24/2016 07:00 Datetime: 03/24/2016 02:27 NBP Sys/Monika/Mean (mmHg): 115 (QS system process) : 68 (QS system process) : 87 (QS system process) Pulse: 83 (QS system process) Datetime: 03/24/2016 02:25 Pain Scale: 0 (Deya Ledgerwood, RN) Datetime: 03/24/2016 02:13 NBP Sys/Monika/Mean (mmHg): 111 (QS system process) : 63 (QS system process) : 81 (QS system process) Pulse: 78 (QS system process) Datetime: 03/24/2016 01:58 NBP Sys/Monika/Mean (mmHg): 128 (QS system process) : 72 (QS system process) : 93 (QS system process) Pulse: 80 (QS system process) Datetime: 03/24/2016 01:43 NBP Sys/Monika/Mean (mmHg): 126 (QS system process) : 84 (QS system process) : 101 (QS system process) Pulse: 81 (QS system process) Datetime: 03/24/2016 01:28 NBP Sys/Monika/Mean (mmHg): 128 (QS system process) : 87 (QS system process) : 103 (QS system process) Pulse: 74 (QS system process) Datetime: 03/24/2016 01:23 NBP Sys/Monika/Mean (mmHg): 124 (QS system process) : 74 (QS system process) : 94 (QS system process) Pulse: 71 (QS system process) Respirations: 15 (Deya Ledbannerwood, RN) Datetime: 03/24/2016 00:40 Stage of : Recovery (Deya Reyes RN) Temperature (F): 98.9 (Deya Reyes RN) Temperature (C): 37.2 (QS system process) Temperature Route: Oral (Deya Reyes RN) Pain Scale: 0 (Deya Reyes RN) Datetime: 03/24/2016 00:36 Stage of : Labor (Arianna Gonzáles RN) Stage 2 Comments: Vaginal delivery of viable baby girl. (Arianna Gonzáles RN) Datetime: 03/24/2016 00:33 Pushing Position: Pushing with Contractions (Deya Reyes RN) Pushing Progress: Molding Noted; Pushing Effectively with Contractions (Deya Reyes RN) Stage 2 Comments: RN and provider at bedside continuously assessing FHRs while pt. pushing with contractions. (Deya Reyes RN) Datetime: 03/24/2016 00:30 Monitor Mode: External; Palpation (Deya Ledgerwood, RN) Frequency (min): 2-2.5 (Deya Ledgerwood, RN) Quality: Moderate to Strong (Deya Ledgerwood, RN) Duration (sec): 60-90 (Deya Ledgerwood, RN) Duration Criteria: Less than Two 120 Second Contractions (Deya Ledgerwood, RN) Pattern: Normal: <= 5 Contractions in 10 Minutes (Deya Ledgerwood, RN) Resting Tone (Palpate): Relaxed (Deya Ledgerwood, RN) Monitor Mode: External US (Deya Ledgerwood, RN) FHR Baseline Rate : 135 (Deya Ledgerwood, RN) FHR Baseline Changes: No Baseline Change (Deya Ledgerwood, RN) Variability: Moderate 6-25 bpm (Deya Ledgerwood, RN) Accelerations: None (Deya Ledgerwood, RN) Decelerations: Early (Deya Ledgerwood, RN) Pitocin (milliunit): Pitocin Remains (milliunits) @ 10 (Deya Ledgerwood, RN) Datetime: 03/24/2016 00:28 NBP Sys/Monika/Mean (mmHg): 147 (QS system process) : 57 (QS system process) : 82 (QS system process) Pulse: 104 (QS system process) LaborFlag: Labor (QS system process) Datetime: 03/24/2016 00:25 Pushing Position: Pushing with Contractions; Pushing Lithotomy (Deya Reyes RN) Pushing Progress: Pushing Effectively with Contractions (Deya Reyes RN) Communication: Provider at Bedside (Deya Reyes RN) Communication Comments: Dr Wells at bedside (Deya Reyes RN) Datetime: 03/24/2016 00:23 Pushing: Coached on Pushing (Deya Reyes RN) Datetime: 03/24/2016 00:15 Dilatation (cm): 10.0 (Deay Reyes, RN) Effacement (%): 100 (Deya Reyes, RN) Station: 1 (Deya Reyes, RN) Exam by: O Mainor RN (Deya Reyes, RN) Datetime: 03/24/2016 00:14 NBP Sys/Monika/Mean (mmHg): 115 (QS system process) : 77 (QS system process) : 92 (QS system process) Pulse: 78 (QS system process) LaborFlag: Labor (QS system process) Datetime: 03/24/2016 00:10 Monitor Mode: External; Palpation (Deya Reyes, RN) Frequency (min): 2-2.5 (Deya Ledgerwood, RN) Quality: Moderate to Strong (Deya Ledgerwood, RN) Duration (sec): 60-70 (Deya Ledgerwood, RN) Duration Criteria: Less than Two 120 Second Contractions (Deya Ledgerwood, RN) Pattern: Normal: <= 5 Contractions in 10 Minutes (Deya Ledgerwood, RN) Resting Tone (Palpate): Relaxed (Deya Ledgerwood, RN) Monitor Mode: External US (Deya Ledgerwood, RN) FHR Baseline Rate : 135 (Deya Ledgerwood, RN) FHR Baseline Changes: No Baseline Change (Deya Ledgerwood, RN) Variability: Moderate 6-25 bpm (Deya Ledgerwood, RN) Accelerations: None (Deya Ledgerwood, RN) Decelerations: Early (Deya Ledgerwood, RN) Pitocin (milliunit): Pitocin Remains (milliunits) @ 10 (Deya Ledgerwood, RN) Datetime: 03/24/2016 00:00 Monitor Mode: External; Palpation (Deya Ledgerwood, RN) Frequency (min): 2.5-3 (Deya Ledgerwood, RN) Quality: Moderate to Strong (Deya Ledgerwood, RN) Duration (sec): 60-70 (Deya Ledgerwood, RN) Duration Criteria: Less than Two 120 Second Contractions (Deya Ledgerwood, RN) Pattern: Normal: <= 5 Contractions in 10 Minutes (Deya Ledgerwood, RN) Resting Tone (Palpate): Relaxed (Deya Ledgerwood, RN) Monitor Mode: External US (Deya Ledgerwood, RN) FHR Baseline Rate : 135 (Deya Ledgerwood, RN) FHR Baseline Changes: No Baseline Change (Deya Ledgerwood, RN) Variability: Moderate 6-25 bpm (Deya Ledgerwood, RN) Accelerations: None (Deya Ledgerwood, RN) Decelerations: Early (Deya Ledgerwood, RN) Pitocin (milliunit): Pitocin Increased to (milliunits) @ 10 (Deya Ledgerwood, RN) Datetime: 03/23/2016 23:57 NBP Sys/Monika/Mean (mmHg): 117 (QS system process) : 70 (QS system process) : 90 (QS system process) Pulse: 79 (QS system process) LaborFlag: Labor (QS system process) Datetime: 03/23/2016 23:45 Monitor Mode: External; Palpation (Deya Ledgerwood, RN) Frequency (min): 1.5-3 (Deya Ledgerwood, RN) Quality: Moderate (Deya Ledgerwood, RN) Duration (sec): 50-70 (Deya Ledgerwood, RN) Duration Criteria: Less than Two 120 Second Contractions (Deya Ledgerwood, RN) Pattern: Normal: <= 5 Contractions in 10 Minutes (Deya Ledgerwood, RN) Resting Tone (Palpate): Relaxed (Deya Ledgerwood, RN) Monitor Mode: External US (Deya Ledgerwood, RN) FHR Baseline Rate : 135 (Deya Ledgerwood, RN) FHR Baseline Changes: No Baseline Change (Deya Ledgerwood, RN) Variability: Moderate 6-25 bpm (Deya Ledgerwood, RN) Accelerations: None (Deya Ledgerwood, RN) Decelerations: Early (Deya Ledgerwood, RN) Pitocin (milliunit): Pitocin Remains (milliunits) @ 8 (Deya Ledgerwood, RN) Datetime: 03/23/2016 23:44 NBP Sys/Monika/Mean (mmHg): 114 (QS system process) : 65 (QS system process) : 84 (QS system process) Pulse: 71 (QS system process) LaborFlag: Labor (QS system process) Datetime: 03/23/2016 23:30 Monitor Mode: External; Palpation (Deya Ledgerwood, RN) Frequency (min): 1.5-2.5 (Deya Ledgerwood, RN) Quality: Moderate (Deya Ledgerwood, RN) Duration (sec): 60-70 (Deya Ledgerwood, RN) Duration Criteria: Less than Two 120 Second Contractions (Deya Ledgerwood, RN) Pattern: Normal: <= 5 Contractions in 10 Minutes (Deya Ledgerwood, RN) Resting Tone (Palpate): Relaxed (Deya Ledgerwood, RN) Monitor Mode: External US (Deya Ledgerwood, RN) FHR Baseline Rate : 130 (Deya Ledgerwood, RN) FHR Baseline Changes: No Baseline Change (Deya Ledgerwood, RN) Variability: Moderate 6-25 bpm (Deya Ledgerwood, RN) Accelerations: None (Deya Ledgerwood, RN) Decelerations: Early (Deya Ledgerwood, RN) Pitocin (milliunit): Pitocin Remains (milliunits) @ 8 (Deya Ledgerwood, RN) Datetime: 03/23/2016 23:28 NBP Sys/Monika/Mean (mmHg): 125 (QS system process) : 77 (QS system process) : 96 (QS system process) Pulse: 78 (QS system process) Respirations: 15 (Deya Ledgerwood, RN) LaborFlag: Labor (QS system process) Datetime: 03/23/2016 23:15 Monitor Mode: External; Palpation (Deya Ledgerwood, RN) Frequency (min): 1.5-3 (Deya Ledgerwood, RN) Quality: Moderate (Deya Ledgerwood, RN) Duration (sec): 60-70 (Deya Ledgerwood, RN) Duration Criteria: Less than Two 120 Second Contractions (Deya Ledgerwood, RN) Pattern: Normal: <= 5 Contractions in 10 Minutes (Deya Ledgerwood, RN) Resting Tone (Palpate): Relaxed (Deya Ledgerwood, RN) Monitor Mode: External US (Deya Ledgerwood, RN) FHR Baseline Rate : 135 (Deya Ledgerwood, RN) FHR Baseline Changes: No Baseline Change (Deya Ledgerwood, RN) Variability: Moderate 6-25 bpm (Deya Ledgerwood, RN) Accelerations: None (Deya Ledgerwood, RN) Decelerations: Early (Deya Ledgerwood, RN) Pitocin (milliunit): Pitocin Remains (milliunits) @ 8 (Deya Ledgerwood, RN) Datetime: 03/23/2016 23:13 NBP Sys/Monika/Mean (mmHg): 122 (QS system process) : 73 (QS system process) : 92 (QS system process) Pulse: 79 (QS system process) LaborFlag: Labor (QS system process) Datetime: 03/23/2016 23:00 Monitor Mode: External; Palpation (Deya Ledgerwood, RN) Frequency (min): 1.5-3 (Deya Ledgerwood, RN) Quality: Moderate (Deya Ledgerwood, RN) Duration (sec): 50-70 (Deya Ledgerwood, RN) Duration Criteria: Less than Two 120 Second Contractions (Deya Ledgerwood, RN) Pattern: Normal: <= 5 Contractions in 10 Minutes (Deya Ledgerwood, RN) Resting Tone (Palpate): Relaxed (Deya Ledgerwood, RN) Monitor Mode: External US (Deya Ledgerwood, RN) FHR Baseline Rate : 135 (Deya Ledgerwood, RN) FHR Baseline Changes: No Baseline Change (Deya Ledgerwood, RN) Variability: Moderate 6-25 bpm (Deya Ledgerwood, RN) Accelerations: 15X15 (Deya Ledgerwood, RN) Decelerations: Early (Deya Ledgerwood, RN) Pitocin (milliunit): Pitocin Remains (milliunits) @ 8 (Deya Ledgerwood, RN) Datetime: 03/23/2016 22:57 NBP Sys/Monika/Mean (mmHg): 128 (QS system process) : 79 (QS system process) : 98 (QS system process) Pulse: 85 (QS system process) LaborFlag: Labor (QS system process) Datetime: 03/23/2016 22:45 Monitor Mode: External; Palpation (Deya Ledgerwood, RN) Frequency (min): 1.5-3 (Deya Ledgerwood, RN) Quality: Moderate (Deya Ledgerwood, RN) Duration (sec): 50-60 (Deya Ledgerwood, RN) Duration Criteria: Less than Two 120 Second Contractions (Deya Ledgerwood, RN) Pattern: Normal: <= 5 Contractions in 10 Minutes (Deya Ledgerwood, RN) Resting Tone (Palpate): Relaxed (Deya Ledgerwood, RN) Monitor Mode: External US (Deya Ledgerwood, RN) FHR Baseline Rate : 135 (Deya Ledgerwood, RN) FHR Baseline Changes: No Baseline Change (Deya Ledgerwood, RN) Variability: Moderate 6-25 bpm (Deya Ledgerwood, RN) Accelerations: None (Deya Ledgerwood, RN) Decelerations: Early (Deya Ledgerwood, RN) Pitocin (milliunit): Pitocin Remains (milliunits) @ 8 (Deya Ledgerwood, RN) Datetime: 03/23/2016 22:43 NBP Sys/Monika/Mean (mmHg): 124 (QS system process) : 79 (QS system process) : 96 (QS system process) Pulse: 78 (QS system process) LaborFlag: Labor (QS system process) Datetime: 03/23/2016 22:30 Monitor Mode: External; Palpation (Deya Reyes, RN) Frequency (min): 1.5-3 (Deya Reyes, RN) Quality: Moderate (Deya Reyes, RN) Duration (sec): 60-70 (Deya Ledgerdiomedes, RN) Duration Criteria: Less than Two 120 Second Contractions (Deya Reyes, RN) Pattern: Normal: <= 5 Contractions in 10 Minutes (Deya Mainor, RN) Resting Tone (Palpate): Relaxed (Deya Stefaniagerdiomedes, RN) Monitor Mode: External US (Deya Reyes, RN) FHR Baseline Rate : 135 (Deya Reyes, RN) FHR Baseline Changes: No Baseline Change (Deya Reyes, RN) Variability: Moderate 6-25 bpm (Deya Ledgerwood, RN) Accelerations: 15X15 (Deya Ledgerwood, RN) Decelerations: Early; Variable (Deyastefania Reyes, RN) Pitocin (milliunit): Pitocin Remains (milliunits) @ 8 (Deya Ledjazmyne, RN) Datetime: 03/23/2016 22:28 NBP Sys/Monika/Mean (mmHg): 117 (QS system process) : 66 (QS system process) : 85 (QS system process) Pulse: 67 (QS system process) LaborFlag: Labor (QS system process) Datetime: 03/23/2016 22:15 Monitor Mode: External; Palpation (Deya Reyes RN) Frequency (min): 1.5-2.5 (Deya Reyes, RN) Quality: Moderate (Deya Reyes, RN) Duration (sec): 50-70 (Deya Reyes, RN) Duration Criteria: Less than Two 120 Second Contractions (Deya Reyes, RN) Pattern: Normal: <= 5 Contractions in 10 Minutes (Deya Reyes, RN) Resting Tone (Palpate): Relaxed (Deya Reyes, RN) Monitor Mode: External US (Deya Reyes, RN) FHR Baseline Rate : 135 (Deya Reyes RN) FHR Baseline Changes: No Baseline Change (Deya Ledgerwood, RN) Variability: Moderate 6-25 bpm (Deya Ledgerwood, RN) Accelerations: 15X15 (Deya Ledgerwood, RN) Decelerations: Early (Deya Ledgerwood, RN) Pitocin (milliunit): Pitocin Remains (milliunits) @ 8 (Deya Ledgerwood, RN) Datetime: 03/23/2016 22:00 Monitor Mode: External; Palpation (Deya Ledgerwood, RN) Frequency (min): 1.5-3 (Deya Ledgerwood, RN) Quality: Moderate (Deya Ledgerwood, RN) Duration (sec): 40-90 (Deya Ledgerwood, RN) Duration Criteria: Less than Two 120 Second Contractions (Deya Ledgerwood, RN) Pattern: Normal: <= 5 Contractions in 10 Minutes (Deya Ledgerwood, RN) Resting Tone (Palpate): Relaxed (Deya Ledgerwood, RN) Monitor Mode: External US (Deya Ledgerwood, RN) FHR Baseline Rate : 135 (Deya Ledgerwood, RN) FHR Baseline Changes: No Baseline Change (Deya Ledgerwood, RN) Variability: Moderate 6-25 bpm (Deya Ledgerwood, RN) Accelerations: 10X10 (Deya Ledgerwood, RN) Decelerations: Early (Deya Ledgerwood, RN) Pitocin (milliunit): Pitocin Remains (milliunits) @ 8 (Deya Ledgerwood, RN) Datetime: 03/23/2016 21:57 NBP Sys/Monika/Mean (mmHg): 117 (QS system process) : 72 (QS system process) : 90 (QS system process) Pulse: 83 (QS system process) LaborFlag: Labor (QS system process) Datetime: 03/23/2016 21:45 Monitor Mode: External; Palpation (Deya Reyes, RN) Frequency (min): 1.5-2.5 (Deya Mainor, RN) Quality: Moderate (Deya Ledgerwood, RN) Duration (sec): 40-90 (Deya Ledgerwood, RN) Duration Criteria: Less than Two 120 Second Contractions (Deya Ledgerwood, RN) Pattern: Normal: <= 5 Contractions in 10 Minutes (Deya Ledgerwood, RN) Resting Tone (Palpate): Relaxed (Deya Ledgerwood, RN) Monitor Mode: External US (Deya Reyes, RN) FHR Baseline Rate : 135 (Deya Stefaniagerwood, RN) FHR Baseline Changes: No Baseline Change (Deya Ledgerwood, RN) Variability: Moderate 6-25 bpm (Deya Ledgerwood, RN) Accelerations: 15X15 (Deya Ledgerwood, RN) Decelerations: None (Deya Ledgerwood, RN) Pitocin (milliunit): Pitocin Remains (milliunits) @ 8 (Deya Reyes, LINDA) Datetime: 03/23/2016 21:43 NBP Sys/Monika/Mean (mmHg): 120 (QS system process) : 78 (QS system process) : 92 (QS system process) Pulse: 74 (QS system process) Respirations: 15 (Deya Reyes RN) LaborFlag: Labor (QS system process) Datetime: 03/23/2016 21:41 Membrane Status: Ruptured (Deya Reyes RN) Membranes Rupture Method: Artificial (Deya Reyes, LINDA) Amniotic Fluid Color: Clear (Deya Reyes, LINDA) Amniotic Fluid Amount: Moderate (Deya Reyes RN) Amniotic Fluid Odor: Normal (Deya Reyes RN) Datetime: 03/23/2016 21:40 Dilatation (cm): 6.5 (Deya Reyes RN) Effacement (%): 75 (Deya Reyes RN) Station: -2 (Deya Reyes RN) Exam by: Dr Wells (Deya Reyes RN) Patient Care Comments: Wade Bulb is out. (Deya Reyes RN) Datetime: 03/23/2016 21:38 Communication: Provider at Bedside (Deya Reyes RN) Communication Comments: Dr Wells at bedside (Deya Reyes RN) Datetime: 03/23/2016 21:30 Monitor Mode: External; Palpation (Deya Reyes RN) Frequency (min): 2-2.5 (Deya Ledgerwood, RN) Quality: Moderate (Deya Ledgerwood, RN) Duration (sec): 50-70 (Deya Ledgerwood, RN) Duration Criteria: Less than Two 120 Second Contractions (Deya Ledgerwood, RN) Pattern: Normal: <= 5 Contractions in 10 Minutes (Deya Ledgerwood, RN) Resting Tone (Palpate): Relaxed (Deya Ledgerwood, RN) Monitor Mode: External US (Deya Ledgerwood, RN) FHR Baseline Rate : 135 (Deya Ledgerwood, RN) FHR Baseline Changes: No Baseline Change (Deya Ledgerwood, RN) Variability: Moderate 6-25 bpm (Deya Ledgerwood, RN) Accelerations: 15X15 (Deya Ledgerwood, RN) Decelerations: None (Deya Ledgerwood, RN) Pitocin (milliunit): Pitocin Remains (milliunits) @ 8 (Deya Ledgerwood, RN) Datetime: 03/23/2016 21:29 NBP Sys/Monika/Mean (mmHg): 126 (QS system process) : 74 (QS system process) : 93 (QS system process) Pulse: 72 (QS system process) LaborFlag: Labor (QS system process) Datetime: 03/23/2016 21:15 Monitor Mode: External; Palpation (Deya Ledgerwood, RN) Frequency (min): 1.5-3 (Deya Ledgerwood, RN) Quality: Moderate (Deya Ledgerwood, RN) Duration (sec): 40-60 (Deya Ledgerwood, RN) Duration Criteria: Less than Two 120 Second Contractions (Deya Ledgerwood, RN) Pattern: Normal: <= 5 Contractions in 10 Minutes (Deya Ledgerwood, RN) Resting Tone (Palpate): Relaxed (Deya Ledgerwood, RN) Monitor Mode: External US (Deya Ledgerwood, RN) FHR Baseline Rate : 140 (Deya Ledgerwood, RN) FHR Baseline Changes: No Baseline Change (Deya Ledgerwood, RN) Variability: Moderate 6-25 bpm (Deya Ledgerwood, RN) Accelerations: 15X15 (Deya Ledgerwood, RN) Decelerations: None (Deya Ledgerwood, RN) Pitocin (milliunit): Pitocin Remains (milliunits) @ 8 (Deya Ledgerwood, RN) Datetime: 03/23/2016 21:11 NBP Sys/Monika/Mean (mmHg): 130 (QS system process) : 78 (QS system process) : 99 (QS system process) Pulse: 69 (QS system process) LaborFlag: Labor (QS system process) Datetime: 03/23/2016 21:06 NBP Sys/Monika/Mean (mmHg): 131 (QS system process) : 67 (QS system process) : 91 (QS system process) Pulse: 72 (QS system process) LaborFlag: Labor (QS system process) Datetime: 03/23/2016 21:00 NBP Sys/Monika/Mean (mmHg): 125 (QS system process) : 73 (QS system process) : 94 (QS system process) Pulse: 74 (QS system process) Monitor Mode: External; Palpation (Deya Reyes RN) Frequency (min): 2.5-3.5 (Deya Reyes, RN) Quality: Moderate (Deya Reyes, RN) Duration (sec): 40-60 (Deya Reyes, RN) Duration Criteria: Less than Two 120 Second Contractions (Deya Reyes, RN) Pattern: Normal: <= 5 Contractions in 10 Minutes (Deya Reyes, RN) Resting Tone (Palpate): Relaxed (Deya Reyes, RN) Monitor Mode: External US (Deya Reyes, RN) FHR Baseline Rate : 135 (Deya Reyes RN) FHR Baseline Changes: No Baseline Change (Deya Ledgerwood, RN) Variability: Moderate 6-25 bpm (Deya Ledgerwood, RN) Accelerations: 15X15 (Deya Ledgerwood, RN) Decelerations: None (Deya Ledgerwood, RN) Pitocin (milliunit): Pitocin Remains (milliunits) @ 8 (Deya Ledgerwood, RN) LaborFlag: Labor (QS system process) Datetime: 03/23/2016 20:56 NBP Sys/Monika/Mean (mmHg): 122 (QS system process) : 67 (QS system process) : 89 (QS system process) Pulse: 63 (QS system process) LaborFlag: Labor (QS system process) Datetime: 03/23/2016 20:49 NBP Sys/Monika/Mean (mmHg): 129 (QS system process) : 60 (QS system process) : 86 (QS system process) Pulse: 58 (QS system process) LaborFlag: Labor (QS system process) Datetime: 03/23/2016 20:46 NBP Sys/Monika/Mean (mmHg): 131 (QS system process) : 61 (QS system process) : 88 (QS system process) Pulse: 58 (QS system process) LaborFlag: Labor (QS system process) Datetime: 03/23/2016 20:45 Monitor Mode: External; Palpation (Deya Mainor, RN) Frequency (min): 2-2.5 (Deya Ledgerwood, RN) Quality: Moderate (Deya Ledgerwood, RN) Duration (sec): 50-60 (Deya Ledgerwood, RN) Duration Criteria: Less than Two 120 Second Contractions (Deya Ledgerwood, RN) Pattern: Normal: <= 5 Contractions in 10 Minutes (Deya Ledgerwood, RN) Resting Tone (Palpate): Relaxed (Deya Ledgerwood, RN) Monitor Mode: External US (Deya Ledgerwood, RN) FHR Baseline Rate : 135 (Deya Ledgerwood, RN) FHR Baseline Changes: No Baseline Change (Deya Ledgerwood, RN) Variability: Moderate 6-25 bpm (Deya Ledgerwood, RN) Accelerations: 15X15 (Deya Ledgerwood, RN) Decelerations: Variable (Deya Aguiargerwood, RN) Pitocin (milliunit): Pitocin Remains (milliunits) @ 8 (Deya Reyes, RN) Datetime: 03/23/2016 20:39 NBP Sys/Monika/Mean (mmHg): 117 (QS system process) : 54 (QS system process) : 78 (QS system process) Pulse: 67 (QS system process) LaborFlag: Labor (QS system process) Datetime: 03/23/2016 20:38 NBP Sys/Monika/Mean (mmHg): 122 (QS system process) : 58 (QS system process) : 83 (QS system process) Pulse: 65 (QS system process) LaborFlag: Labor (QS system process) Datetime: 03/23/2016 20:37 NBP Sys/Monika/Mean (mmHg): 118 (QS system process) : 57 (QS system process) : 82 (QS system process) Pulse: 63 (QS system process) LaborFlag: Labor (QS system process) Datetime: 03/23/2016 20:36 NBP Sys/Monika/Mean (mmHg): 118 (QS system process) : 58 (QS system process) : 83 (QS system process) Pulse: 58 (QS system process) LaborFlag: Labor (QS system process) Datetime: 03/23/2016 20:35 NBP Sys/Monika/Mean (mmHg): 124 (QS system process) : 57 (QS system process) : 82 (QS system process) Pulse: 64 (QS system process) LaborFlag: Labor (QS system process) Datetime: 03/23/2016 20:34 NBP Sys/Monika/Mean (mmHg): 115 (QS system process) : 56 (QS system process) : 80 (QS system process) Pulse: 55 (QS system process) LaborFlag: Labor (QS system process) Datetime: 03/23/2016 20:33 NBP Sys/Monika/Mean (mmHg): 112 (QS system process) : 55 (QS system process) : 77 (QS system process) Pulse: 54 (QS system process) LaborFlag: Labor (QS system process) Datetime: 03/23/2016 20:32 NBP Sys/Monika/Mean (mmHg): 127 (QS system process) : 65 (QS system process) : 90 (QS system process) Pulse: 52 (QS system process) LaborFlag: Labor (QS system process) Datetime: 03/23/2016 20:31 NBP Sys/Monika/Mean (mmHg): 118 (QS system process) : 63 (QS system process) : 84 (QS system process) Pulse: 67 (QS system process) LaborFlag: Labor (QS system process) Datetime: 03/23/2016 20:30 NBP Sys/Monika/Mean (mmHg): 138 (QS system process) : 73 (QS system process) : 96 (QS system process) Pulse: 71 (QS system process) Monitor Mode: External; Palpation (Deya Reyes RN) Frequency (min): 2.5-4 (Deya Reyes RN) Quality: Moderate (Deya Reyes RN) Duration (sec): 60-70 (Deya Reyes RN) Duration Criteria: Less than Two 120 Second Contractions (Deya Reyes, LINDA) Pattern: Normal: <= 5 Contractions in 10 Minutes (Deya Reyes, LINDA) Resting Tone (Palpate): Relaxed (Deya Reyes RN) Monitor Mode: External US (Deya Reyes RN) FHR Baseline Rate : 135 (Deya Reyes RN) FHR Baseline Changes: No Baseline Change (Deya Reyes RN) Variability: Moderate 6-25 bpm (Deya Reyes, RN) Accelerations: None (Deya Reyes, RN) Decelerations: None (Deya Reyes, RN) Pitocin (milliunit): Pitocin Remains (milliunits) @ 8 (Deya Reyes RN) I/O Interventions: Wade Cath Inserted (Deya Reyes RN) Patient Care Comments: 14 F by Erik Reyes RN (Deya Reyes RN) LaborFlag: Labor (QS system process) Datetime: 03/23/2016 20:29 NBP Sys/Monika/Mean (mmHg): 121 (QS system process) : 68 (QS system process) : 88 (QS system process) Pulse: 61 (QS system process) LaborFlag: Labor (QS system process) Datetime: 03/23/2016 20:28 Pulse: 65 (QS system process) SpO2 (%): 98 (QS system process) LaborFlag: Labor (QS system process) Datetime: 03/23/2016 20:27 NBP Sys/Monika/Mean (mmHg): 143 (QS system process) : 65 (QS system process) : 93 (QS system process) Pulse: 68 (QS system process) LaborFlag: Labor (QS system process) Datetime: 03/23/2016 20:25 NBP Sys/Monika/Mean (mmHg): 132 (QS system process) : 64 (QS system process) : 91 (QS system process) Pulse: 70 (QS system process) LaborFlag: Labor (QS system process) Datetime: 03/23/2016 20:24 NBP Sys/Monika/Mean (mmHg): 131 (QS system process) : 63 (QS system process) : 91 (QS system process) Pulse: 75 (QS system process) LaborFlag: Labor (QS system process) Datetime: 03/23/2016 20:23 NBP Sys/Monika/Mean (mmHg): 144 (QS system process) : 68 (QS system process) : 98 (QS system process) Pulse: 76 (QS system process) Pulse: 65 (QS system process) SpO2 (%): 98 (QS system process) Epidural Procedure: Test Dose (Deya Mainor, RN) LaborFlag: Labor (QS system process) Datetime: 03/23/2016 20:22 NBP Sys/Monika/Mean (mmHg): 144 (QS system process) : 67 (QS system process) : 96 (QS system process) Pulse: 62 (QS system process) LaborFlag: Labor (QS system process) Datetime: 03/23/2016 20:21 Anesthesia Plans: Epidural (Deya Ledgerwood, RN) Epidural Positioning: Sitting (Deya Ledgerwood, RN) Datetime: 03/23/2016 20:18 Pulse: 62 (QS system process) SpO2 (%): 99 (QS system process) LaborFlag: Labor (QS system process) Datetime: 03/23/2016 20:16 NBP Sys/Monika/Mean (mmHg): 147 (QS system process) : 68 (QS system process) : 98 (QS system process) Pulse: 54 (QS system process) Communication: Provider at Bedside (Deya Reyes RN) Communication Comments: Dr Ragland at bedside (Deya Reyes RN) LaborFlag: Labor (QS system process) Datetime: 03/23/2016 20:15 NBP Sys/Monika/Mean (mmHg): 147 (QS system process) : 62 (QS system process) : 89 (QS system process) Pulse: 70 (QS system process) Monitor Mode: External; Palpation (Deya Reyes, LINDA) Frequency (min): 1.5-2.5 (Deya Reyes, LINDA) Quality: Moderate (Deya Reyes RN) Duration (sec): 70-80 (Deya Reyes, RN) Duration Criteria: Less than Two 120 Second Contractions (Deya Reyes, RN) Pattern: Normal: <= 5 Contractions in 10 Minutes (Deya Reyes, RN) Resting Tone (Palpate): Relaxed (Deya Reyes, RN) Monitor Mode: External US (Deya Reyes, RN) FHR Baseline Rate : 145 (Deya Reyes, RN) FHR Baseline Changes: No Baseline Change (Deya Reyes, RN) Variability: Moderate 6-25 bpm (Deya Reyes, RN) Accelerations: None (Deya Reyes, RN) Decelerations: None (Deya Reyes RN) Pitocin (milliunit): Pitocin Remains (milliunits) @ 8 (Deya Reyes RN) LaborFlag: Labor (QS system process) Datetime: 03/23/2016 20:13 NBP Sys/Monika/Mean (mmHg): 136 (QS system process) NBP Sys/Monika/Mean (mmHg): 139 (QS system process) : 84 (QS system process) : 80 (QS system process) : 102 (QS system process) : 105 (QS system process) Pulse: 76 (QS system process) Pulse: 68 (QS system process) Pulse: 69 (QS system process) SpO2 (%): 96 (QS system process) LaborFlag: Labor (QS system process) Datetime: 03/23/2016 20:12 NBP Sys/Monika/Mean (mmHg): 151 (QS system process) : 73 (QS system process) : 102 (QS system process) Pulse: 64 (QS system process) LaborFlag: Labor (QS system process) Datetime: 03/23/2016 20:10 NBP Sys/Monika/Mean (mmHg): 150 (QS system process) : 72 (QS system process) : 104 (QS system process) Pulse: 71 (QS system process) LaborFlag: Labor (QS system process) Datetime: 03/23/2016 20:09 NBP Sys/Monika/Mean (mmHg): 149 (QS system process) : 75 (QS system process) : 105 (QS system process) Pulse: 70 (QS system process) LaborFlag: Labor (QS system process) Datetime: 03/23/2016 20:08 NBP Sys/Monika/Mean (mmHg): 175 (QS system process) : 82 (QS system process) : 111 (QS system process) Pulse: 59 (QS system process) Pulse: 77 (QS system process) SpO2 (%): 97 (QS system process) Procedure Verify: Correct Patient Identity; Correct Side and Site are Marked; Accurate Procedure Consent Form; Correct Patient Position (Deya Reyes RN) LaborFlag: Labor (QS system process) Datetime: 03/23/2016 20:06 NBP Sys/Monika/Mean (mmHg): 160 (QS system process) : 95 (QS system process) : 116 (QS system process) Pulse: 73 (QS system process) LaborFlag: Labor (QS system process) Datetime: 03/23/2016 20:05 NBP Sys/Monika/Mean (mmHg): 169 (QS system process) : 90 (QS system process) : 122 (QS system process) Pulse: 77 (QS system process) LaborFlag: Labor (QS system process) Datetime: 03/23/2016 20:04 NBP Sys/Monika/Mean (mmHg): 155 (QS system process) : 83 (QS system process) : 114 (QS system process) Pulse: 71 (QS system process) LaborFlag: Labor (QS system process) Datetime: 03/23/2016 20:03 Pulse: 71 (QS system process) SpO2 (%): 98 (QS system process) LaborFlag: Labor (QS system process) Datetime: 03/23/2016 20:01 Procedure Verify: Correct Patient Identity; Correct Side and Site are Marked; Accurate Procedure Consent Form; Correct Patient Position (Deya Reyes RN) Anesthesia Plans: Epidural (Deya Reyes, RN) Epidural Positioning: Sitting (Deya Reyes, LINDA) Datetime: 03/23/2016 20:00 NBP Sys/Monika/Mean (mmHg): 136 (QS system process) : 79 (QS system process) : 105 (QS system process) Pulse: 56 (QS system process) Monitor Mode: External; Palpation (Deya Reyes, LINDA) Frequency (min): 2-2.5 (Deya Reyes, RN) Quality: Moderate (Deya Reyes, RN) Duration (sec): 70-80 (Deya Reyes, RN) Duration Criteria: Less than Two 120 Second Contractions (Deya Reyes, RN) Pattern: Normal: <= 5 Contractions in 10 Minutes (Deya Reyes, RN) Resting Tone (Palpate): Non Relaxed (Deya Reyes, RN) Monitor Mode: External US (Deya Reyes, RN) FHR Baseline Rate : 135 (Deya Reyes, RN) FHR Baseline Changes: No Baseline Change (Deya Reyes, RN) Variability: Moderate 6-25 bpm (Deya Aguiargerdiomedes, RN) Accelerations: 15X15 (Deya Aguiargerdiomedes, RN) Decelerations: None (Deya Reyes, RN) Pitocin (milliunit): Pitocin Remains (milliunits) @ 8 (Deya Reyes, RN) LaborFlag: Labor (QS system process) Datetime: 03/23/2016 19:59 Procedure Verify: Correct Patient Identity; Correct Side and Site are Marked; Accurate Procedure Consent Form; Correct Patient Position (Deya Ledgerwood, RN) Datetime: 03/23/2016 19:45 Monitor Mode: External; Palpation (Deya Reyes, RN) Frequency (min): 1.5-2.5 (Deya Ledgerwood, RN) Quality: Moderate (Deya Ledgerwood, RN) Duration (sec): 60-70 (Deya Ledgerwood, RN) Duration Criteria: Less than Two 120 Second Contractions (Deya Ledgerwood, RN) Pattern: Normal: <= 5 Contractions in 10 Minutes (Deya Ledgerwood, RN) Resting Tone (Palpate): Relaxed (Deya Ledgerwood, RN) Monitor Mode: External US (Deya Ledgerwood, RN) FHR Baseline Rate : 135 (Deya Ledgerwood, RN) FHR Baseline Changes: No Baseline Change (Deya Ledgerwood, RN) Variability: Moderate 6-25 bpm (Deya Ledgerwood, RN) Accelerations: 10X10 (Deya Ledgerwood, RN) Decelerations: None (Deya Ledgerwood, RN) Pitocin (milliunit): Pitocin Remains (milliunits) @ 8 (Deya Reyes, RN) Datetime: 03/23/2016 19:37 I/O Interventions: Up to BR (Deya Reyes RN) Communication: RN at Bedside (Deya Reyes RN) Datetime: 03/23/2016 19:30 Monitor Mode: Palpation (Deya Reyes RN) Monitor Interventions for UA: [place] Adjusted (Deya Reyes RN) Frequency (min): UTD (Deya Reyes RN) Contraction Comments: new toco applied. (Deya Reyes RN) Monitor Mode: External US (Deya Reyes RN) FHR Baseline Rate : 140 (Deya Reyes RN) FHR Baseline Changes: No Baseline Change (Deya Reyes RN) Variability: Moderate 6-25 bpm (Deya Reyes RN) Accelerations: 15X15 (Deya Reyes RN) Decelerations: None (Deya Reyes RN) Pitocin (milliunit): Pitocin Remains (milliunits) @ 8 (Deya Reyes RN) Datetime: 03/23/2016 19:29 NBP Sys/Monika/Mean (mmHg): 135 (QS system process) : 86 (QS system process) : 107 (QS system process) Pulse: 82 (QS system process) Respirations: 15 (Deya Reyes RN) Pain Scale: 5 (Annotations: 5 out 5 during contractions) (Deya Reyes RN) Pain Presence: Intermittent (Deya Reyes RN) Pain Type: Contraction (Deya Reyes RN) Pain Location: Abdomen (Deya Reyes RN) Pain Relief Measures: pt is bolusing for Epidural (Deya Reyes RN) Pain Coping: Breathing Through Contractions (Deya Reyes RN) Vaginal Bleeding: None (Deya Reyes RN) Level of Consciousness: Fully Conscious (Deya Reyes RN) DTR's/Clonus: DTRs 2+; No Clonus (Deya Reyes RN) Headache: Denies (Deya Reyes RN) Breath Sounds, Left: Clear and Equal (Deya Reyes RN) Breath Sounds, Right: Clear and Equal (Deya Reyes RN) Nausea/Vomiting: Denies (Deya Reyes RN) RUQ Epigastric Pain: Denies (Deya Reyes RN) Instructional Method: Demo; Verbal; Patient Instructed (Deya Reyes RN) Plan of Care: Plan of Care Discussed (Deya Reyes RN) Unit Routine: Safety/Fall Risk Prevention (Deya Reyes RN) Labor/Induction: Induction (eDya Reyes RN) Pain Management: Epidural (Deya Reyes RN) LaborFlag: Labor (QS system process) Datetime: 03/23/2016 19:22 Communication Comments: report received from Bob Otto RN (Deya Reyes, LINDA) Datetime: 03/23/2016 19:20 Stage of : Labor (Laura Otto RN) Communication: RN at Bedside; RN Reviewed Strip (Laura Otto RN) Communication Comments: REPORT TO Erik REYES RN- CARE RELINQUISHED (Laura Otto RN) Datetime: 03/23/2016 19:14 Stage of : Labor (Laura Otto, LINDA) Respirations: 20 (Laura Otto, RN) Monitor Mode: External (Laura Otto, RN) Monitor Interventions for UA: [place] Adjusted (Laura Otto, RN) Frequency (min): 2-2.5 (Laura Otto, RN) Quality: Moderate (Laura Otto, RN) Duration (sec): 60-70 (Laura Otto, RN) Resting Tone (Palpate): Relaxed (Laura Otto, RN) Contraction Comments: TOCO REPLACED (Laura Otto, LINDA) Monitor Mode: External US (Laura Otto, RN) Monitor Interventions for FHR: Ultrasound Adjusted (Laura Otto, RN) FHR Baseline Rate : 140 (Laura Otto, LINDA) FHR Baseline Changes: No Baseline Change (Laura Otto, RN) Variability: Moderate 6-25 bpm (Laura Otto, RN) Accelerations: 10X10 (Laura Otto, RN) Decelerations: None (Laura Otto, RN) Pain Relief Measures: Comfort Measures (Laura Otto, RN) Pain Coping: Breathing Through Contractions (Laura Otto, RN) Pitocin (milliunit): Pitocin Remains (milliunits) @ 8 (Laura Otto, RN) IV/Blood Work: New IV Bag Hung (Laura Otto, RN) Patient Position/Activity: Right Tilt; Low Fowlers (Laura Otto, RN) Comfort Measures: Breathing/Relaxation; Coaching; Family Support (Laura Otto, RN) Communication: RN at Bedside; RN Reviewed Strip (Laura Otto, LINDA) LaborFlag: Labor (QS system process) Datetime: 03/23/2016 19:02 Stage of : Labor (Laura Otto RN) Respirations: 20 (Laura Otto RN) Monitor Mode: External (Laura Otto RN) Monitor Interventions for UA: [place] Adjusted (Laura Otto RN) Frequency (min): 2-2.5 (Laura Otto RN) Quality: Moderate (Laura Otto RN) Duration (sec): 60-70 (Laura Otto RN) Resting Tone (Palpate): Relaxed (Laura Otto RN) Monitor Mode: External US (Laura Otto RN) Monitor Interventions for FHR: Ultrasound Adjusted (Laura Otto RN) FHR Baseline Rate : 140 (Laura Otto RN) FHR Baseline Changes: No Baseline Change (Laura Otto RN) Variability: Moderate 6-25 bpm (Laura Otto, LINDA) Accelerations: 15X15 (Laura Otto, LINDA) Decelerations: None (Laura Otto RN) Pain Scale: 4 (Laura Otto RN) Pain Presence: Intermittent (Laura Otto RN) Pain Type: Contraction (Laura Otto RN) Pain Location: Abdomen (Laura Otto RN) Pain Relief Measures: Comfort Measures (Laura Otto RN) Pain Coping: Breathing Through Contractions (Laura Otto RN) Pitocin (milliunit): Pitocin Remains (milliunits) @ 8 (Laura Roz Roulund, RN) Patient Position/Activity: Right Tilt; Semi-Fowlers (Laura Otto RN) Comfort Measures: Breathing/Relaxation; Coaching; Family Support (Laura Otto RN) I/O Interventions: Up to BR (Laura Otto RN) Instructional Method: Verbal; Patient Instructed; Family/Support Person Instructed; Verbalized Understanding (Laura Otto RN) Pain Management: Epidural (Laura Otto RN) Communication: RN at Bedside; RN Reviewed Strip (Laura Otto RN) LaborFlag: Labor (QS system process) Datetime: 03/23/2016 19:00 NBP Sys/Monika/Mean (mmHg): 146 (QS system process) : 107 (QS system process) : 123 (QS system process) Pulse: 82 (QS system process) LaborFlag: Labor (QS system process)
--- NOTE | 2016-03-24 09:15 | PDOC PROGRESS REPORT ---
Subjective-OB Subjective: Post Delivery Day: 25 year old. Denies any needs at this time. Has Evette Ricks. Attends AA meetings. Physical Exam (OB) Vital Signs: Temp Pulse Resp BP Pulse Ox 97.8 F 71 16 106/61 99 03/24/16 07:38 03/24/16 07:38 03/24/16 07:38 03/24/16 07:38 03/24/16 07:38 Intake & Output 03/23/16 03/24/16 03/25/16 06:59 06:59 06:59 Weight 62.85 kg - Lochia Lochia Amount: Small 10-25 ml Lochia Color: Rubra/Red - Abdomen Description: Tender, Soft Hernia Present: No Bowel Sounds: Normoactive Flatus Presence: Present Stool: No Fundal Description: Firm, Midline Fundal Height: u/u - u/2 Objective-Diagnostic Laboratory: 03/23/16 15:40 03/23/16 15:40 03/23/16 03/23/16 03/23/16 14:41 15:40 15:40 WBC 9.3 RBC 3.84 Hgb 12.4 Hct 36.2 MCV 94 MCH 32.3 MCHC 34.3 RDW 12.8 Plt Count 282 Sodium Potassium Chloride Carbon Dioxide Anion Gap BUN Creatinine Est GFR ( Amer) Est GFR (Non-Af Amer) Glucose Calcium Total Bilirubin AST ALT Alkaline Phosphatase Total Protein Albumin Urine Color YELLOW Urine Appearance CLEAR Urine pH 7.0 Ur Specific [place] 1.006 Urine Protein NEGATIVE Urine Glucose (UA) NEGATIVE Urine Ketones NEGATIVE Urine Blood NEGATIVE Urine Nitrite NEGATIVE Ur Leukocyte Esterase LARGE H Blood Type O NEGATIVE Antibody Screen POSITIVE 03/23/16 15:40 WBC RBC Hgb Hct MCV MCH MCHC RDW Plt Count Sodium 137.1 Potassium 4.3 Chloride 107 Carbon Dioxide 21 L Anion Gap 9 BUN 6 L Creatinine 0.50 L Est GFR ( Amer) > 60 Est GFR (Non-Af Amer) > 60 Glucose 107 Calcium 9.2 Total Bilirubin 0.6 AST 34 ALT 23 Alkaline Phosphatase 146 H Total Protein 6.1 L Albumin 3.3 L Urine Color Urine Appearance Urine pH Ur Specific [place] Urine Protein Urine Glucose (UA) Urine Ketones Urine Blood Urine Nitrite Ur Leukocyte Esterase Blood Type Antibody Screen
[2016-03-24] MEDS: SENNOSIDES/DOCUSATE 8.6-50 MG 1 EACH TABLET PO SCH (10:22)
[2016-03-24] MEDS: FERROUS SULFATE 325 MG TABLET PO SCH ×2 (10:22→18:09)
[2016-03-24] MEDS: PRENATAL VITAMIN W-O CA NO5/FE FUMARATE/FA CAPSULE PO SCH (10:22)
[2016-03-24] MEDS: DOCUSATE SODIUM 100 MG CAPSULE PO SCH ×2 (10:22→18:09)
--- NOTE | 2016-03-24 18:01 | L&D General Admission ---
General Admit Datetime Report Generated by CPN: 03/24/2016 18:00 INFORMATION Patient Age: 25 (01/27/2015 18:16:QS system process) EDC: 03/30/2016 00:00 (03/23/2016 14:59:Sean Martin RN) LMP: 06/09/2015 00:00 (03/23/2016 14:59:Sean Martin RN) : 1 (03/23/2016 14:59:Sean Martin RN) Para: 0 (03/23/2016 14:59:Sean Martin RN) Term: 0 (03/23/2016 14:59:Sean Martin RN) : 0 (03/23/2016 14:59:Sean Martin RN) Spontaneous Abortions: 0 (03/23/2016 14:59:Sean Martin RN) Induced Abortions: 0 (03/23/2016 14:59:Sean Martin RN) Livin (03/23/2016 14:59:Sean Martin RN) Cesareans: 0 (03/23/2016 14:59:Sean Martin RN) VBACs: 0 (03/23/2016 14:59:Sean Martin RN) Ectopic: 0 (03/23/2016 14:59:Sean Martin RN) Multiple Births: 0 (03/23/2016 14:59:Sean Martin RN) Baby, Number in Womb: 1 (03/23/2016 14:59:Sean Martin RN) CARE 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: [facility] (03/23/2016 14:59:Sean Martin RN) Month of 1st Visit: July (03/23/2016 14:59:Sean Martin RN) Adequate Care: Yes (03/23/2016 14:59:Sean Martin RN) Height (in): 63 (03/24/2016 11:05:QS system process) ALLERGIES Medication Allergy: No (03/23/2016 14:59:Sean Martin RN) Medication Allergies: No Known Allergies (03/23/2016) (03/23/2016 14:45:QS system process) Latex Allergy: No Latex Allergies (03/23/2016 14:59:Sean Martin RN) Food Allergies: None (03/23/2016 14:59:Sean Martin RN) Environmental Allergies: None (03/23/2016 14:59:Sean Martin RN) COMMUNICATION Primary Language: Ghanaian (03/23/2016 14:59:Sean Martin RN) Medical Tx Preferred Language: Ghanaian (03/23/2016 14:59:Sean Martin RN) Communication Barrier(s): None (03/23/2016 14:59:Sean Martin RN) DEMOGRAPHICS Address: [address] [place] [id number] (02/14/2016 18:17:QS system process) Zipcode: [address] (02/14/2016 18:17:QS system process) Home (01/27/2016 18:16:QS system process) Work (03/23/2016 14:22:QS system process) N: [phone] (01/27/2016 18:16:QS system process) Next of Kin Name: SIVA KING (02/14/2016 18:17:QS system process) Next of Kin (02/14/2016 18:17:QS system process) Next of Kin Relationship: OR (02/14/2016 18:17:QS system process) Date of : 1990 (01/27/2016 18:16:QS system process) Marital Status: Single (02/14/2016 18:17:QS system process) Sex: Female (01/27/2016 18:16:QS system process) Occupation: Other (03/23/2016 14:59:Sean Martin RN) Occupation- Other : [employer] (03/23/2016 14:59:Sean Martin RN) Race: Other (02/14/2016 18:17:QS system process) Ethnicity: or (02/14/2016 18:17:QS system process) Scientology: Quaker (02/14/2016 18:17:QS system process) Education: 13 (03/23/2016 14:59:Sean Martin RN) FOB Involved: No (03/23/2016 14:59:Sean Martin RN) DRUG AND ALCOHOL USE Alcohol: Yes (03/23/2016 14:59:Sean Martin RN) Average Alcohol Consumption: Occasional (03/23/2016 14:59:Sean Martin RN) Cigarettes: Former Smoker. [id number] (03/23/2016 14:59:Sean Martin RN) Average Cigarettes Smoked: < 5 per day (03/23/2016 14:59:Sean Martin RN) Advised to Stop Smoking: No (03/23/2016 14:59:Sean Martin RN) Marijuana: No (03/23/2016 14:59:Sean Martin RN) Cocaine: No (03/23/2016 14:59:Sean Martin RN) Other Illicit Drugs: Yes (03/23/2016 14:59:Sean Martin RN) Other Illicit Drug Comments: Hydrocodone, used occassionally before Subutex, last used right at the beginning of around July (03/23/2016 14:59:Sean Martin RN) VACCINE HISTORY Influenza Vaccine: No (03/23/2016 14:59:Sean Martin RN) Pneumococcal Vaccine: No (03/23/2016 14:59:Sean Martin RN) Tetanus Vaccine: Yes (03/23/2016 14:59:Sena Martin RN) Tetanus Date: Recieved withint the last two years (03/23/2016 14:59:Sean Martin RN) Tdap Vaccine: Yes (03/23/2016 14:59:Sean Martin RN) Tdap Date: 02/23/16 (03/23/2016 14:59:Sean Martin RN) Hepatitis B Vaccine: Uncertain (03/23/2016 14:59:Sean Martin RN) Veterinary Manager: [facility] (03/23/2016 14:59:Sean Martin RN) Feeding Preference: Breast (03/23/2016 14:59:Sean Martin RN) Benefit of Breast Feed Discussed: Yes (03/23/2016 14:59:Sean Martin RN) Circumcision: N/A (03/23/2016 14:59:Laura Otto RN) Classes Attended: No (03/23/2016 14:59:Sean Martin RN) Tubal Ligation: No (03/23/2016 14:59:Sean Martin RN) Tubal Authorization Signed: N/A (03/23/2016 14:59:Laura Otto RN) Consent: N/A (03/23/2016 14:59:Laura Otto RN) Consent Signed: No (03/23/2016 14:59:Sean Martin RN) Pain Management Plans: Epidural (03/23/2016 14:59:Sean Martin RN) Plans for Labor and Delivery: None (03/23/2016 14:59:Laura Otto RN) Support Person: Jesica King (03/23/2016 14:59:Sean Martin RN) Support Person Relationship: Mother (03/23/2016 14:59:Sean Martin RN) Cultural/Spritual Practice: No (03/23/2016 14:59:Saen Martin RN) Spir/Cult Dietary Needs: No (03/23/2016 14:59:Sean Martin RN) LIVING SITUATION/DISCHARGE PLAN Living Arrangements: House (03/23/2016 14:59:Sean Martin RN) Adequate Access to:: Electric; Heat; Refrigeration; Plumbing/Running water; Phone; Transportation (03/23/2016 14:59:Sean Martin RN) WIC Program: Yes (03/23/2016 14:59:Sean Martin RN) Discharge Composite Assembler Person: Jesica King (03/23/2016 14:59:Sean Martin RN) Person to Help after Discharge: Jesica King (03/23/2016 14:59:Sean Martin RN) Currently Using Commun Resources: Yes (03/23/2016 14:59:Sean Martin RN) Specify Current Resource Used: Medicaid (03/23/2016 14:59:Sean Martin RN) Outside Agency/Mountain Services Manager: No (03/23/2016 14:59:Sean Martin RN) Car Seat for Discharge: Yes (03/23/2016 14:59:Sean Martin RN) Adoption Requested: No (03/23/2016 14:59:Sean Martin RN) Pt Contact w/infant Post : N/A (03/23/2016 14:59:Sean Martni RN) LABS Blood Type: O Negative (03/23/2016 14:59:Jennifer Willson RN) Antibody Screen: neg (03/23/2016 14:59:Jennifer Willson RN) Hemoglobin: 12.4 (03/23/2016 15:40:QS system process) Hematocrit: 36.2 (03/23/2016 15:40:QS system process) MCV: 94 (03/23/2016 15:40:QS system process) Group Beta Strep: neg (03/23/2016 14:59:Jennifer Willson RN) Gonorrhea: Negative (03/23/2016 14:59:Jennifer Willson RN) Chlamydia: Negative (03/23/2016 14:59:Jennifer Willson RN) RPR/VDRL: Nonreactive (03/23/2016 14:59:Jennifer Willson RN) Hepatitis B: Negative (03/23/2016 14:59:Jennifer Willson RN) Rubella: Immune (03/23/2016 14:59:Jennifer Willson RN) OB/PREVIOUS HISTORY Age of Menses Onset: 15 (03/23/2016 14:59:Sean Martin RN) Menses Amount: Light (03/23/2016 14:59:Sean Martin RN) LMP Regular: No (03/23/2016 14:59:Sean Martin RN) Date Pos Preg Test: 07/10/2015 00:00 (03/23/2016 14:59:Sean Martin RN) BCP at Conception: No (03/23/2016 14:59:Sean Martin RN) LMP: 06/09/2015 00:00 (03/23/2016 14:59:Sean Martin RN) Previous Procedures: None (03/23/2016 14:59:Sean Martin RN) Current Procedures: Ultrasound; NST (03/23/2016 14:59:Sean Martin RN) History of Previous : No (03/23/2016 14:59:Sean Martin RN) History of Gestational Diabetes: No (03/23/2016 14:59:Sean Martin RN) History of PIH: No (03/23/2016 14:59:Sean Martin RN) History of Incompetent Cervix: No (03/23/2016 14:59:Sean Martin RN) History of Placenta Previa/Abrup: No (03/23/2016 14:59:Sean Martin RN) History of Macrosomia: No (03/23/2016 14:59:Sean Martin RN) History of IUGR: No (03/23/2016 14:59:Sean Martin RN) History of Hemorrhage: Unknown (03/23/2016 14:59:Sean Martin RN) History of Loss/Stillborn: No (03/23/2016 14:59:Sean Martin RN) History of : No (03/23/2016 14:59:Sean Martin RN) History of D (Rh) Sensitization: No (03/23/2016 14:59:Laura Otto RN) History Recurrent Loss/Stillborn: No (03/23/2016 14:59:Sean Martin RN) History Depression/PP Depression: Yes (03/23/2016 14:59:Sean Martin RN) History of Uterine Anomaly/[place]: No (03/23/2016 14:59:Laura Otto RN) History of Infertility: No (03/23/2016 14:59:Sean Martin RN) History of ART Treatment: No (03/23/2016 14:59:Sean Martin RN) History of [place]: No (03/23/2016 14:59:Laura Otto RN) MEDICAL HISTORY Med Hx Diabetes: No (03/23/2016 14:59:Sean Martin RN) Med Hx Hypertension: No (03/23/2016 14:59:Sean Martin RN) Med Hx Heart Disease: No (03/23/2016 14:59:Sean Martin RN) Med Hx Autoimmune Disorder: No (03/23/2016 14:59:Sean Martin RN) Med Hx Kidney Disease/UTI: No (03/23/2016 14:59:Laura Otto RN) Med Hx Neurologic/Epilepsy: No (03/23/2016 14:59:Sean Martin RN) Med Hx Psychiatric Disorders: Yes (03/23/2016 14:59:Sean Martin RN) Med Hx Hepatitis/Liver Disease: Yes (03/23/2016 14:59:Sean Martin RN) Med Hx Varicosities/Phlebitis: No (03/23/2016 14:59:Sean Martin RN) Med Hx Thyroid Dysfunction: No (03/23/2016 14:59:Sean Martin RN) Med Hx Trauma/Violence: No (03/23/2016 14:59:Sean Martin RN) Med Hx Blood Transfusion: No (03/23/2016 14:59:Sean Martin RN) Med Hx Pulmonary (Asthma,TB): No (03/23/2016 14:59:Sean Martin RN) Med Hx Breast: No (03/23/2016 14:59:Sean Martin RN) Med Hx SLITTER 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: No (03/23/2016 14:59:Sean Martin RN) Med Hx Hospitalization/Surgery: Yes (03/23/2016 14:59:Sean Martin RN) Med Hx Anesthetic Complications: No (03/23/2016 14:59:Sean Martin RN) Med Hx Abnormal Pap Smear: No (03/23/2016 14:59:Sean Martin RN) Other Medical Diseases: No (03/23/2016 14:59:Sean Martin RN) Med Hx Significant Family Hx: No (03/23/2016 14:59:Sean Martin RN) Details of Med/Surg Hx: Bipolar disorder, Depression, Hepatitis C, Tonsillectomy, [place] teeth removal (03/23/2016 14:59:Sean Martin RN) INFECTIOUS HISTORY Inf Hx Gonorrhea: No (03/23/2016 14:59:Sean Martin RN) Inf Hx Chlamydia: No (03/23/2016 14:59:Sean Martin RN) Inf Hx Syphilis: No (03/23/2016 14:59:Sean Martin RN) Inf Hx HIV/AIDS: No (03/23/2016 14:59:Sean Martin RN) Inf Hx Human Papilloma Virus: No (03/23/2016 14:59:Sean Martin RN) Inf Hx Pt/Partner Genital Herpes: Yes (03/23/2016 14:59:Sean Martin RN) Inf Hx Tuberculosis/Exposure: No (03/23/2016 14:59:Sean Martin RN) Inf Hx Hepatitis B,C: Yes (03/23/2016 14:59:Sean Martin RN) Inf Hx Rash or Viral Illness: No (03/23/2016 14:59:Sean Martin RN) Details of Infectious Hx: Genital Herpes, currently takes Valtrex QD, last outbreak was in JAN 2016; HEPATITIS C (03/23/2016 14:59:Laura Otto RN) GENETIC HISTORY Gen Hx Age >=35 at JACK: No (03/23/2016 14:59:Laura Otto RN) Gen Hx Thalassemia: No (03/23/2016 14:59:Laura Otto RN) Gen Hx Congenital Heart Defect: No (03/23/2016 14:59:Laura Otto RN) Gen Hx Neural Tube Defect: No (03/23/2016 14:59:Laura Otto RN) Gen Hx Down's Syndrome: No (03/23/2016 14:59:Laura Otto RN) Gen Hx Carson-Sachs: No (03/23/2016 14:59:Laura Otto RN) Gen Hx Justyna: No (03/23/2016 14:59:Laura Otto RN) Gen Hx Familial Dysautonomia: No (03/23/2016 14:59:Laura Otto RN) Gen Hx Sickle Cell Disease/Trait: No (03/23/2016 14:59:Laura Otto RN) Gen Hx Hemophilia/Blood Disorder: No (03/23/2016 14:59:Laura Otto RN) Gen Hx Muscular Dystrophy: No (03/23/2016 14:59:Laura Otto RN) Gen Hx Cystic Fibrosis: No (03/23/2016 14:59:Laura Otto RN) Gen Hx Huntingtons Chorea: No (03/23/2016 14:59:Laura Otto RN) Gen Hx Mental Retardation/Autism: No (03/23/2016 14:59:Laura Otto RN) Gen Hx Tested for Fragile X: No (03/23/2016 14:59:Laura Otto RN) Gen Hx Other Inher/Chromosomal: No (03/23/2016 14:59:Laura Otto RN) Gen Hx Maternal Metabolic DO: No (03/23/2016 14:59:Laura Otto RN) Gen Hx Pt Father or FOB Defect: No (03/23/2016 14:59:Laura Otto RN) Gen Hx Other Genetic History: No (03/23/2016 14:59:Laura Otto RN) Gen Hx Drugs/Meds since LMP: No (03/23/2016 14:59:Laura Otto RN)
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
[2016-03-24] MEDS: QUETIAPINE FUMARATE 25 MG TABLET PO SCH (21:15)
[2016-03-25] MEDS: ACETAMINOPHEN WITH CODEINE #3 TABLET PO PRN ×3 (03:27→21:40)
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
--- NOTE | 2016-03-25 06:01 | L&D General Admission ---
General Admit Datetime Report Generated by CPN: 03/25/2016 06:00 INFORMATION Patient Age: 25 (01/27/2016 18:16:QS system process) EDC: 03/30/2016 00:00 (03/23/2016 14:59:Sean Martin RN) LMP: 06/09/2015 00:00 (03/23/2016 14:59:Sean Martin RN) : 1 (03/23/2016 14:59:Sean Martin RN) Para: 0 (03/23/2016 14:59:Sean Martin RN) Term: 0 (03/23/2016 14:59:Sean Martin RN) : 0 (03/23/2016 14:59:Sean Martin RN) Spontaneous Abortions: 0 (03/23/2016 14:59:Sean Martin RN) Induced Abortions: 0 (03/23/2016 14:59:Sean Martin RN) Livin (03/23/2016 14:59:Sean Martin RN) Cesareans: 0 (03/23/2016 14:59:Sean Martin RN) VBACs: 0 (03/23/2016 14:59:Sean Martin RN) Ectopic: 0 (03/23/2016 14:59:Sean Martin RN) Multiple Births: 0 (03/23/2016 14:59:Sean Martin RN) Baby, Number in Womb: 1 (03/23/2016 14:59:Sean Martin RN) CARE Primary Multi Site Leasing Consultant: [facility] (03/23/2016 14:59:Sean Martin RN) Month of 1st Visit: July (03/23/2016 14:59:Sean Martin RN) Adequate Care: Yes (03/23/2016 14:59:Sean Martin RN) Height (in): 63 (03/24/2016 11:05:QS system process) ALLERGIES Medication Allergy: No (03/23/2016 14:59:Sean Martin RN) Medication Allergies: No Known Allergies (03/23/2016) (03/23/2016 14:45:QS system process) Latex Allergy: No Latex Allergies (03/23/2016 14:59:Sean Martin RN) Food Allergies: None (03/23/2016 14:59:Sean Martin RN) Environmental Allergies: None (03/23/2016 14:59:Sean Martin RN) COMMUNICATION Primary Language: American (03/23/2016 14:59:Sean Martin RN) Medical Tx Preferred Language: American (03/23/2016 14:59:Sean Martin RN) Communication Barrier(s): None (03/23/2016 14:59:Sean Martin RN) DEMOGRAPHICS Address: [address] [place] [id number] (02/14/2016 18:17:QS system process) Zipcode: [id number] (02/14/2016 18:17:QS system process) Home (01/27/2016 18:16:QS system process) Work (03/23/2016 14:22:QS system process) N: [id number] (01/27/2016 18:16:QS system process) Next of Kin Name: SIVA KING (02/14/2016 18:17:QS system process) Next of Kin (02/14/2016 18:17:QS system process) Next of Kin Relationship: OR (02/14/2016 18:17:QS system process) Date of : 1990 (01/27/2016 18:16:QS system process) Marital Status: Single (02/14/2016 18:17:QS system process) Sex: Female (01/27/2016 18:16:QS system process) Occupation: Other (03/23/2016 14:59:Sean Martin RN) Occupation- Other : [employer] (03/23/2016 14:59:Sean Martin RN) Race: Other (02/14/2016 18:17:QS system process) Ethnicity: or (02/14/2016 18:17:QS system process) Jainism: Pentecostalism (02/14/2016 18:17:QS system process) Education: 13 (03/23/2016 14:59:Sean Martin RN) FOB Involved: No (03/23/2016 14:59:Sean Martin RN) DRUG AND ALCOHOL USE Alcohol: Yes (03/23/2016 14:59:Sean Martin RN) Average Alcohol Consumption: Occasional (03/23/2016 14:59:Sean Martin RN) Cigarettes: Former Smoker. [id number] (03/23/2016 14:59:Sean Martin RN) Average Cigarettes Smoked: < 5 per day (03/23/2016 14:59:Sean Martin RN) Advised to Stop Smoking: No (03/23/2016 14:59:Sean Martin RN) Marijuana: No (03/23/2016 14:59:Sean Martin RN) Cocaine: No (03/23/2016 14:59:Sean Martin RN) Other Illicit Drugs: Yes (03/23/2016 14:59:Sean Martin RN) Other Illicit Drug Comments: Hydrocodone, used occassionally before Subutex, last used right at the beginning of around July (03/23/2016 14:59:Sean Martin RN) VACCINE HISTORY Influenza Vaccine: No (03/23/2016 14:59:Sean Martin RN) Pneumococcal Vaccine: No (03/23/2016 14:59:Sean Martin RN) Tetanus Vaccine: Yes (03/23/2016 14:59:Sean Martin RN) Tetanus Date: Recieved withint the last two years (03/23/2016 14:59:Sean Martin RN) Tdap Vaccine: Yes (03/23/2016 14:59:Sean Martin RN) Tdap Date: 02/23/16 (03/23/2016 14:59:Sean Martin RN) Hepatitis B Vaccine: Uncertain (03/23/2016 14:59:Sean Martin RN) Singing Waiter Or Waitress: [facility] (03/23/2016 14:59:Sean Martin RN) Feeding Preference: Breast (03/23/2016 14:59:Sean Martin RN) Benefit of Breast Feed Discussed: Yes (03/23/2016 14:59:Sean Martin RN) Circumcision: N/A (03/23/2016 14:59:Laura Otto RN) Classes Attended: No (03/23/2016 14:59:Sean Martin RN) Tubal Ligation: No (03/23/2016 14:59:Sean Martin RN) Tubal Authorization Signed: N/A (03/23/2016 14:59:Laura Otto RN) Consent: N/A (03/23/2016 14:59:Laura Otto RN) Consent Signed: No (03/23/2016 14:59:Sean Martin RN) Pain Management Plans: Epidural (03/23/2016 14:59:Sean Martin RN) Plans for Labor and Delivery: None (03/23/2016 14:59:Laura Otto RN) Support Person: Jesica King (03/23/2016 14:59:Sean Martin RN) Support Person Relationship: Mother (03/23/2016 14:59:Sean Martin RN) Cultural/Spritual Practice: No (03/23/2016 14:59:Sean Martin RN) Spir/Cult Dietary Needs: No (03/23/2016 14:59:Sean Martin RN) LIVING SITUATION/DISCHARGE PLAN Living Arrangements: House (03/23/2016 14:59:Sean Martin RN) Adequate Access to:: Electric; Heat; Refrigeration; Plumbing/Running water; Phone; Transportation (03/23/2016 14:59:Sean Martin RN) WIC Program: Yes (03/23/2016 14:59:Sean Martin RN) Discharge Electronics Engineering Professor Person: Jesica King (03/23/2016 14:59:Sean Martin RN) Person to Help after Discharge: Jesica King (03/23/2016 14:59:Sean Martin RN) Currently Using Commun Resources: Yes (03/23/2016 14:59:Sean Martin RN) Specify Current Resource Used: Medicaid (03/23/2016 14:59:Sean Martin RN) Outside Agency/Cert Occupational Therapy Asst: No (03/23/2016 14:59:Sean Martin RN) Car Seat for Discharge: Yes (03/23/2016 14:59:Sean Martin RN) Adoption Requested: No (03/23/2016 14:59:Sean Martin RN) Pt Contact w/infant Post : N/A (03/23/2016 14:59:Sean Martin RN) LABS Blood Type: O Negative (03/23/2016 14:59:Jennifer Willson RN) Antibody Screen: neg (03/23/2016 14:59:Jennifer Willson RN) Hemoglobin: 12.4 (03/23/2016 15:40:QS system process) Hematocrit: 36.2 (03/23/2016 15:40:QS system process) MCV: 94 (03/23/2016 15:40:QS system process) Group Beta Strep: neg (03/23/2016 14:59:Jennifer Willson RN) Gonorrhea: Negative (03/23/2016 14:59:Jennifer Willson RN) Chlamydia: Negative (03/23/2016 14:59:Jennifer Willson RN) RPR/VDRL: Nonreactive (03/23/2016 14:59:Jennifer Willson RN) Hepatitis B: Negative (03/23/2016 14:59:Jennifer Willson RN) Rubella: Immune (03/23/2016 14:59:Jennifer Willson RN) OB/PREVIOUS HISTORY Age of Menses Onset: 15 (03/23/2016 14:59:Sean Martin RN) Menses Amount: Light (03/23/2016 14:59:Sean Martin RN) LMP Regular: No (03/23/2016 14:59:Sean Martin RN) Date Pos Preg Test: 07/10/2015 00:00 (03/23/2016 14:59:Sean Martin RN) BCP at Conception: No (03/23/2016 14:59:Sean Martin RN) LMP: 06/09/2015 00:00 (03/23/2016 14:59:Sean Martin RN) Previous Procedures: None (03/23/2016 14:59:eSan Martin RN) Current Procedures: Ultrasound; NST (03/23/2016 14:59:Sean Martin RN) History of Previous : No (03/23/2016 14:59:Sean Martin RN) History of Gestational Diabetes: No (03/23/2016 14:59:Sean Martin RN) History of PIH: No (03/23/2016 14:59:Sean Martin RN) History of Incompetent Cervix: No (03/23/2016 14:59:Sean Martin RN) History of Placenta Previa/Abrup: No (03/23/2016 14:59:Sean Martin RN) History of Macrosomia: No (03/23/2016 14:59:Sean Martin RN) History of IUGR: No (03/23/2016 14:59:Sean Martin RN) History of Hemorrhage: Unknown (03/23/2016 14:59:Sean Martin RN) History of Loss/Stillborn: No (03/23/2016 14:59:Sean Martin RN) History of : No (03/23/2016 14:59:Sena Martin RN) History of D (Rh) Sensitization: No (03/23/2016 14:59:Laura Otto RN) History Recurrent Loss/Stillborn: No (03/23/2016 14:59:Sean Martin RN) History Depression/PP Depression: Yes (03/23/2016 14:59:Sean Martin RN) History of Uterine Anomaly/[place]: No (03/23/2016 14:59:Laura Otto RN) History of Infertility: No (03/23/2016 14:59:Sean Martin RN) History of ART Treatment: No (03/23/2016 14:59:Sean Martin RN) History of [place]: No (03/23/2016 14:59:Laura Otto RN) MEDICAL HISTORY Med Hx Diabetes: No (03/23/2016 14:59:Sean Martin RN) Med Hx Hypertension: No (03/23/2016 14:59:Sean Martin RN) Med Hx Heart Disease: No (03/23/2016 14:59:Sean Martin RN) Med Hx Autoimmune Disorder: No (03/23/2016 14:59:Sean Martin RN) Med Hx Kidney Disease/UTI: No (03/23/2016 14:59:Laura Otto RN) Med Hx Neurologic/Epilepsy: No (03/23/2016 14:59:Sean Martin RN) Med Hx Psychiatric Disorders: Yes (03/23/2016 14:59:Sean Martin RN) Med Hx Hepatitis/Liver Disease: Yes (03/23/2016 14:59:Sean Martin RN) Med Hx Varicosities/Phlebitis: No (03/23/2016 14:59:Sean Martin RN) Med Hx Thyroid Dysfunction: No (03/23/2016 14:59:Sean Martin RN) Med Hx Trauma/Violence: No (03/23/2016 14:59:Sean Martin RN) Med Hx Blood Transfusion: No (03/23/2016 14:59:Sean Martin RN) Med Hx Pulmonary (Asthma,TB): No (03/23/2016 14:59:Sean Martin RN) Med Hx Breast: No (03/23/2016 14:59:Sean Martin RN) Med Hx ADJUSTER LEADER Surgery: No (03/23/2016 14:59:Sean Martin RN) Med Hx Hospitalization/Surgery: Yes (03/23/2016 14:59:Sean Martin RN) Med Hx Anesthetic Complications: No (03/23/2016 14:59:Sean Martin RN) Med Hx Abnormal Pap Smear: No (03/23/2016 14:59:Sean Martin RN) Other Medical Diseases: No (03/23/2016 14:59:Sean Martin RN) Med Hx Significant Family Hx: No (03/23/2016 14:59:Sean Martin RN) Details of Med/Surg Hx: Bipolar disorder, Depression, Hepatitis C, Tonsillectomy, [place] teeth removal (03/23/2016 14:59:Sean Martin RN) INFECTIOUS HISTORY Inf Hx Gonorrhea: No (03/23/2016 14:59:Sean Martin RN) Inf Hx Chlamydia: No (03/23/2016 14:59:Sean Martin RN) Inf Hx Syphilis: No (03/23/2016 14:59:Sean Martin RN) Inf Hx HIV/AIDS: No (03/23/2016 14:59:Sean Martin RN) Inf Hx Human Papilloma Virus: No (03/23/2016 14:59:Sean Martin RN) Inf Hx Pt/Partner Genital Herpes: Yes (03/23/2016 14:59:Sean Martin RN) Inf Hx Tuberculosis/Exposure: No (03/23/2016 14:59:Sean Martin RN) Inf Hx Hepatitis B,C: Yes (03/23/2016 14:59:Sean Martin RN) Inf Hx Rash or Viral Illness: No (03/23/2016 14:59:Sean Martin RN) Details of Infectious Hx: Genital Herpes, currently takes Valtrex QD, last outbreak was in JAN 2016; HEPATITIS C (03/23/2016 14:59:Laura Otto RN) GENETIC HISTORY Gen Hx Age >=35 at JACK: No (03/23/2016 14:59:Laura Otto RN) Gen Hx Thalassemia: No (03/23/2016 14:59:Laura Otto RN) Gen Hx Congenital Heart Defect: No (03/23/2016 14:59:Laura Otto RN) Gen Hx Neural Tube Defect: No (03/23/2016 14:59:Laura Otto RN) Gen Hx Down's Syndrome: No (03/23/2016 14:59:Laura Otto RN) Gen Hx Carson-Sachs: No (03/23/2016 14:59:Laura Otto RN) Gen Hx Justyna: No (03/23/2016 14:59:Laura Otto RN) Gen Hx Familial Dysautonomia: No (03/23/2016 14:59:Laura Otto RN) Gen Hx Sickle Cell Disease/Trait: No (03/23/2016 14:59:Laura Otto RN) Gen Hx Hemophilia/Blood Disorder: No (03/23/2016 14:59:Laura Otto RN) Gen Hx Muscular Dystrophy: No (03/23/2016 14:59:Laura Otto RN) Gen Hx Cystic Fibrosis: No (03/23/2016 14:59:Laura Otto RN) Gen Hx Huntingtons Chorea: No (03/23/2016 14:59:Laura Otto RN) Gen Hx Mental Retardation/Autism: No (03/23/2016 14:59:Laura Otto RN) Gen Hx Tested for Fragile X: No (03/23/2016 14:59:Laura Otto RN) Gen Hx Other Inher/Chromosomal: No (03/23/2016 14:59:Laura Otto RN) Gen Hx Maternal Metabolic DO: No (03/23/2016 14:59:Laura Otto RN) Gen Hx Pt Father or FOB Defect: No (03/23/2016 14:59:Laura Otto RN) Gen Hx Other Genetic History: No (03/23/2016 14:59:Laura Otto RN) Gen Hx Drugs/Meds since LMP: No (03/23/2016 14:59:Laura Otto RN)
--- NOTE | 2016-03-25 06:15 | L&D Care Plan ---
LD CARE PLANS Datetime Report Generated by CPN: 03/25/2016 06:15 Datetime: 03/23/2016 16:30 Pain State: Actual (Laura Otto RN) Related To: Labor and Delivery Process; Complication(s) of ; Treatment and Procedures; Post (Laura Otto RN) Goal(s): Patients Pain will be Assessed and Managed; Patient will Verbalize Adequate Relief of Pain or the Ability to [place] with Current Pain (Laura Otto RN) Interventions: Assess Pain Severity on Scale of 0 (None) to 5 (Severe); Assess Type, Location and Intensity of Pain Each Time Client Reports Discomfort and Notify Provider if Unusal Pain Develops; Encourage Proper Breathing and Relaxation Techniques; Offer Alternatives Such as Repositioning, Calm Environment, Massages, Diversional Activities, Ice Pack, Splinting, and Ambulation; Administer Analgesics as Ordered; Assist with Epidural Placement as Appropriate; Evaluate Therapeutic Effectiveness of Medication and Treatments (Laura Otto RN) Outcome: Patient will Report Absence or Relief of Pain Consistent with Established Pain Goal (Laura Otto RN) Status: Ongoing (Laura Otto RN) Outcome: Patient will have a Decrease in Signs and Symptoms of Discomfort (Laura Otto RN) Status: Ongoing (Laura Otto RN) Outcome: Pain will be Controlled During Procedures (Laura Otto RN) Status: Ongoing (Laura Otto RN) Anxiety State: Risk For (Laura Otto RN) Related To: Labor and Delivery Process; Perceived or Actual Threat to ; Fear of Unknown; Situational Crisis; Significant Life Event (Laura Otto RN) Goal(s): Patient will have Decreased Anxiety and be able to Function at Acceptable Levels (Laura Otto RN) Interventions: Assess Verbal and Nonverbal Behavioral Indicators of Anxiety; Assist Patient to Identify and Verbalize Symptoms of Anxiety; Identify and Demonstrate Techniques to Control Anxiety; Assist Patient with Coping Mechanisms to Manage Anxiety; Provide Theraputic Touch for the Patient; Explain to Patient, Using a Calm Reassuring Approach and Nonmedical Terms, All Activities, Procedures, and Concerns; Instruct Patient and Family about Post Discharge Care, Limitations, Symptoms to Report and Resources Available (Laura Otto RN) Outcome: Patient will Identify, Verbalize and Demonstrate Techniques to Control Anxiety (Laura Otto RN) Status: Ongoing (Laura Otto RN) Outcome: Patient's Posture, Facial Expressions, Gestures and Activity Level will Reflect Decreased Anxiety (Laura Otto RN) Status: Ongoing (Laura Otto RN) Outcome: Patient will Verbalize a Sense of Control and/or Acceptance of the Situation (Laura Otto RN) Status: Ongoing (Laura Otto RN) Outcome: Patient will Identify and Utilize Support Person (Laura Otto RN) Status: Ongoing (Laura Otto RN) Knowledge Deficit State: Actual (Laura Otto RN) Related To: Labor and Delivery Process; Treatment and Procedures; Impending Alterations in Family Dynamics; Feeding and Infant Care; Community Resources and Available Support Mechanisms (Laura Otto RN) Goal(s): Patient will Accurately Verbalize Understanding of Plan of Care and Treatment; Patient and Family will Accurately Verbalize Understanding of the Disease Process (Laura Otto RN) Interventions: Assess Motivation and Willingness of Patient/Family to Learn; Assess Preferred Learning Mode: One to One Instruction, Reading, Videos, Group Discussion or Demonstration; Assess Barriers to Learning: Pain, Emotional State, Language Barrier, Cognitive Impairment, Visual or Hearing Deficits; Assess Patient and Family Knowledge of Disease Process, Medications and Treatment; Discuss Therapy and/or Treatment Options, Describe Rationale Behind Management, Therapy and Treatment Recommendations; Instruct Patient and Family on Signs and Symptoms to Report; Instruct Patient and Family on Medication Effects and Side Effects; Provide Appropriate and Timely Education Using Multiple Techniques; Provide Patient and Family with Support Group Information and Resources; Give Clear and Thorough Explanations and Demonstrations (Laura Otto RN) Outcome: Patient and Family will Verbalize Understanding of Condition, Treatment and Signs and Symptoms to Report (Laura Otto RN) Status: Ongoing (Laura Otto RN) Outcome: Patient will Identify Perceived Learning Needs and Express Motivation to Learn (Laura Otto RN) Status: Ongoing (Laura Otto RN) Outcome: Patient will Verbalize Understanding of Desired Content, and/or Performs Desired Skill Prior to Discharge (Laura Otto RN) Status: Ongoing (Laura Otto RN) Infection State: Risk For (Laura Otto RN) Related To: Prolonged Labor or Induction; Premature/Prolonged Rupture of Membranes; Invasive Procedures (Laura Otto RN) Goal(s): The Patient will be Free of Infection, Vital Signs Stable and Lab Work within Normal Parameters (Laura Otto RN) Interventions: Instruct and Reinforce Proper Handwashing, Hygiene, and Care Techniques to Patient and Family; Monitor Vital Signs; Monitor Patient for the Following Signs of Infection: Fever, Abdominal Tenderness, Unusual Discharge; Monitor Aminiotic Fluid, Urine and Lochia for Color and Odor; Observe Wounds, Incisions and Invasive Line Sites for Redness, Drainage and Edema; Assess IV Sites per Hospital Policy; Monitor Lab and Test Results and Notify Provider of Abnormal Findings; Assess Nutritional Status and Promote Good Nutrition (Laura Otto RN) Outcome: Patient will Remain Free of Infection (Laura Otto RN) Status: Ongoing (Laura Otto RN) Outcome: Infection will be Recognized Early to Allow for Prompt Treatment (Laura Otto RN) Status: Ongoing (Laura Otto RN) Outcome: Patient will have Vital Signs Within Expected Range (Laura Otto RN) Status: Ongoing (Laura Otto RN) Fluid Volume State: Risk For (Laura Otto RN) Related To: Prolonged Labor or Induction; Hemorrhage; Anesthesia (Laura Otto RN) Goal(s): Patient will Achieve and Maintain a Balanced Fluid Volume Status; Hemodynamically Stable (Laura Otto RN) Interventions: Monitor Vital Signs; Auscultate Breath Sounds; Monitor Patient for Skin Turgor, Mucous Membranes, Dry Skin, Weakness, Headaches and Confusion; Provide Oral Fluids as Ordered; Initiate and Maintain Intravenous Fluids as Ordered; Monitor Intake and Output as Indicated Per Patient Status; Accurately Measure Blood Loss; Monitor Lab and Test Results as Obtained and Notify Provider of Abnormal Findings; Monitor Patient's Weight (Laura Otto RN) Outcome: Patient will have Clear Lung Sounds (Laura Otto RN) Status: Ongoing (Laura Otto RN) Outcome: Patient will have Vital Signs within Expected Range (Laura Otto RN) Status: Ongoing (Laura Otto RN) Outcome: Urine Output will be within Expected Range (Laura Otto RN) Status: Ongoing (Laura Otto RN) Outcome: Patient will have Minimal Generalized or Upper Extremity Edema (Laura Otto RN) Status: Ongoing (Laura Otto RN) Injury State: Risk For (Laura Otto RN) Related To: Labor and Delivery Process; Anesthesia; Risk to Status; Uteroplacental Perfusion; Decreased Mobility; Hemorrhage, Placenta Previa and or Placental Abruption (Laura Otto RN) Goal(s): Patient will Remain Free from Injury (Laura Otto RN) Interventions: Monitoring as per Hospital Protocol; Assess Neurological Status; Perform Risk Assessment of Patients with Induction and ; Perform Fall Risk Assessment and Prevention per Hospital Protocol; Perform DVT Risk Assessment and Prophylaxis per Hospital Protocol; Ensure that Oxygen, Suction, and Resuscitation Medications and Equipment are Readily Available; Confirm Patient ID Prior to Procedure(s) and Medication Administration per Hospital Policy (Laura Otto RN) Outcome: Successful Fall Risk Prevention (Laura Otto RN) Status: Ongoing (Laura Otto RN) Outcome: Patient will Deliver without Adverse [place]ela (Laura Otto RN) Status: Ongoing (Laura Otto RN) Outcome: Patient's Neurological Status will Remain Stable (Laura Otto RN) Status: Ongoing (Laura Otto RN) Impaired Skin Integrity State: Risk For (Laura Otto RN) Related To: Vaginal Delivery; Invasive Procedures (Laura Otto, LINDA) Goal(s): Patient will Maintain Optimal Skin Integrity, Free of Breakdown, Injury or Infection (Laura Otto RN) Interventions: Complete Screening for Pressure Ulcer Risk and Initiate Protocol per Hospital Policy; Monitor Site of Skin Impairment for Color Changes, Redness, Swelling, Warmth, Pain or Other Signs of Infection; Encourage and Assist with Position Changes; Monitor Patient's Mobility Status; Provide Adequate Nutrition and Fluids; Teach Patient Appropriate Hygienic Care; Teach Patient/Family Skin Care Management (Laura Otto RN) Outcome: Patient will not have Evidence of Injury Such as Skin Breakdown, Scrapes, Cuts, or Bruising (Laura Otto RN) Status: Ongoing (Laura Otto RN) Outcome: Patient will Report Any Altered Sensation or Pain at Site of Skin Impairment (Laura Otto, RN) Status: Ongoing (Laura Otto RN) Outcome: Patients Incisions and Wounds will be without Signs or Symptoms of Infection (Laura Otto, LINDA) Status: Ongoing (Laura Otto RN) Outcome: Patient will Demonstrate Understanding of Plan to Heal Skin and Prevent Reinjury and Verbalize Risk Factors (Laura Otto RN) Status: Ongoing (Laura Otto RN) Parenting Impaired State: Risk For (Laura Otto RN) Related To: Apprehension Related to Care (Laura Otto RN) Goal(s): Parents will Demonstrate Progressive Parenting Behaviors (Laura Otto RN) Interventions: Assess for Adequacy of Support Systems; Observe and Encourage Patient/Family Infant Attachment and Bonding Activities and Provide Feedback; Assess Patient/Family Understanding of Infant's Condition and Provide Accurate Information About Condition, Treatment and Prognosis; Assess for Patient/Family Behaviors that May Indicate Lack of Attachment; Provide a Safe Non-judgmental Environment for Patient/Family to Discuss Concerns; Promote Patient/Family Cohesiveness by Encouraging Discussion and Problem Solving; Urology Teacher Referral as Indicated (Laura Otto RN) Outcome: Patient/Family will Discuss Their Fears and the Possibility of Difficulties with Parenting (Laura Otto RN) Status: Ongoing (Laura Otto RN) Outcome: Patient/Family will Exhibit Appropriate Bonding Behaviors with (Laura Otto RN) Status: Ongoing (Laura Otto RN) Outcome: Patient/Family will Verbalize Positive Feelings and Demonstrate Affection and Caring Toward (Laura Otto RN) Status: Ongoing (Laura Otto RN) Nutrition State: Actual (Laura Otto RN) Related To: ; (Laura Otto RN) Goal(s): Patient will have an Intake of Nutrients Sufficient to Meet Metabolic Needs (Larua Otto RN) Interventions: Nutritional Screening and Assessment per Hospital Policy; Consult [employer] Administrator for Further Assessment and Recommendations Regarding Food Preferences and Nutritional Support; Allow Patient to Plan and Order Diet when Possible; Monitor Laboratory Values That Indicate Nutritional Well-being; Consult Welfare Officer for Nutritional Support Regarding Requirements; Document Actual Weight Initially and Weekly (Do Not Estimate); Encourage Patient Participation in Maintaining a Food Log as Indicated; Educate Patient on the Importance of Maintaining an Adequate Caloric Intake (Laura Otto, LINDA) Outcome: Patient will Receive Adequate Calories and Fluid Volume to Meet Metabolic Needs (Laura Otto RN) Status: Ongoing (Laura Otto RN) Outcome: Patient will Select Foods or Meals that Support Adequate Nutrition (Laura Otto RN) Status: Ongoing (Laura Otto RN)
[2016-03-25] MEDS: IBUPROFEN 800 MG TABLET PO SCH ×3 (06:19→21:39)
[2016-03-25 07:38] LABS: HEMATOCRIT 32.4 % (36.0-47.0); HEMOGLOBIN 10.9 g/dL (12.0-15.5); HGB HCT DIFFERENCE 0.3; MEAN CORPUSCULAR HEMOGLOBIN 32.3 pg (27.0-33.4); MEAN CORPUSCULAR HGB CONC 33.8 g/dL (32.0-36.0); MEAN CORPUSCULAR VOLUME 96 fl (80-97); RED BLOOD COUNT 3.39 10^6/uL (3.72-5.28); RED CELL DISTRIBUTION WIDTH 12.7 % (11.5-14.0); WHITE BLOOD COUNT 9.4 10^3/uL (4.0-10.5)
[2016-03-25] MEDS: FERROUS SULFATE 325 MG TABLET PO SCH ×2 (09:32→17:20)
[2016-03-25] MEDS: DOCUSATE SODIUM 100 MG CAPSULE PO SCH ×2 (09:32→17:19)
[2016-03-25] MEDS: PRENATAL VITAMIN W-O CA NO5/FE FUMARATE/FA CAPSULE PO SCH (09:33)
[2016-03-25] MEDS: SENNOSIDES/DOCUSATE 8.6-50 MG 1 EACH TABLET PO SCH (09:33)
--- NOTE | 2016-03-25 12:17 | PDOC PROGRESS REPORT ---
Subjective-OB Subjective: Post Delivery Day: 25 year old. Denies any needs at this time ff@[id number] mild lochia anticipate d/c in am Physical Exam (OB) Vital Signs: Temp Pulse Resp BP Pulse Ox 97.7 F 58 L 16 101/58 L 100 03/25/16 07:44 03/25/16 07:44 03/25/16 07:44 03/25/16 07:44 03/25/16 07:44 Intake & Output 03/24/16 03/25/16 03/26/16 06:59 06:59 06:59 Intake Total 350 Balance 350 Weight 62.85 kg - Lochia Lochia Amount: Scant < 10 ml Lochia Color: Rubra/Red - Abdomen Description: Soft, Round Hernia Present: No Fundal Description: Firm, Midline Fundal Height: u/u - u/2 Objective-Diagnostic Laboratory: 03/25/16 07:28 03/23/16 15:40 03/25/16 07:28 WBC 9.4 RBC 3.39 L Hgb 10.9 L Hct 32.4 L MCV 96 MCH 32.3 MCHC 33.8 RDW 12.7 Plt Count 247
[2016-03-25] MEDS: QUETIAPINE FUMARATE 25 MG TABLET PO SCH (21:40)
[2016-03-26] MEDS: IBUPROFEN 800 MG TABLET PO SCH ×2 (04:26→13:17)
[2016-03-26] MEDS: ACETAMINOPHEN WITH CODEINE #3 TABLET PO PRN ×3 (04:26→17:41)
[2016-03-26 08:11] VITALS: BP 101/55
--- NOTE | 2016-03-26 09:45 | PDOC PROGRESS REPORT ---
Subjective-OB Subjective: Post Delivery Day: 26 year old. Denies any needs at this time Doing well, family at BS, baby in room, ready to go home, , needs refill for seroquel until she can get appt with Psych, voiding Physical Exam (OB) Vital Signs: Temp Pulse Resp BP Pulse Ox 97.8 F 64 15 101/55 L 100 03/26/16 07:40 03/26/16 07:40 03/26/16 07:40 03/26/16 07:40 03/26/16 07:40 Intake & Output 03/25/16 03/26/16 03/27/16 06:59 06:59 06:59 Intake Total 350 Balance 350 - Lochia Lochia Amount: Scant < 10 ml Lochia Color: Rubra/Red - Abdomen Description: Soft, Round Hernia Present: No Fundal Description: Firm, Midline Fundal Height: u/u - u/2 Objective-Diagnostic Laboratory: 03/25/16 07:28 03/23/16 15:40 Assessment and Plan(PN) - Assessment and Plan (1) Poly-drug misuser Is this a current diagnosis for this admission?: Yes (2) Hepatitis C infection Qualifiers: Viral hepatitis chronicity: chronic Is this a current diagnosis for this admission?: Yes (3) Delivery normal Is this a current diagnosis for this admission?: Yes - Time Spent with Patient Time with patient: Less than 15 minutes Medications reviewed and adjusted accordingly: Yes - Disposition Anticipated Discharge: Home Within: Other - home today
[2016-03-26] MEDS: DOCUSATE SODIUM 100 MG CAPSULE PO SCH ×2 (09:50→17:34)
[2016-03-26] MEDS: FERROUS SULFATE 325 MG TABLET PO SCH ×2 (09:51→17:35)
[2016-03-26] MEDS: PRENATAL VITAMIN W-O CA NO5/FE FUMARATE/FA CAPSULE PO SCH (09:51)
[2016-03-26] MEDS: SENNOSIDES/DOCUSATE 8.6-50 MG 1 EACH TABLET PO SCH (09:51)
--- NOTE | 2016-03-26 09:51 | PDOC DISCHARGE SUMMARY ---
Final Diagnosis Discharge Date: 03/26/16 - Final Diagnosis (1) Poly-drug misuser Is this a current diagnosis for this admission?: Yes (2) Hepatitis C infection Is this a current diagnosis for this admission?: Yes (3) Delivery normal Is this a current diagnosis for this admission?: Yes Discharge Data - Discharge Medication Home Medications: Pnv95/Ferrous Fumarate/FA [ Formula Tablet] 1 each PO DAILY 03/23/16 Quetiapine Fumarate [Seroquel 25 mg Tablet] 75 mg PO QHS 03/23/16 Valacyclovir HCl [Valtrex 500 Mg Tablet] 500 mg PO DAILY 03/23/16 Quetiapine Fumarate [Seroquel 25 mg Tablet] 75 mg PO QHS #30 tablet 03/26/16 Gestational Age: 39.1 Reason(s) for Admission: Induction of Labor, Other Admission Note: IUGR Procedures: NST, Ultrasound Intrapartum Procedure(s): Spontaneous Vaginal Delivery, Episiotomy Complication(s): Laceration-Periurethral, Episiotomy Laceration-Degree: 1st - [place] Data Baby 1 Female at 1 minute: 9 at 5 minutes: 9 Weight: 2.41 kg Home with Mother: Yes Complications: No - Diagnosis Test Laboratory: Temp Pulse Resp BP Pulse Ox 97.8 F 64 15 101/55 L 100 03/26/16 07:40 03/26/16 07:40 03/26/16 07:40 03/26/16 07:40 03/26/16 07:40 03/23/16 03/23/16 03/25/16 14:41 15:40 07:28 RBC 3.84 3.39 L Hgb 12.4 10.9 L Hct 36.2 32.4 L Urine Opiates Screen NEGATIVE - Discharge information/Instructions Discharge Activity: Activity As Tolerated, Balance Activity w/Rest, No Lifting Over 10 Pounds, No Lifting/Push/Pulling, Pelvic Rest, Slowly Increase Activity, No tub bath, Walk Frequently Discharge Diet: As Tolerated, Regular Disposition: HOME, SELF-CARE Follow up with: [facility]: 4, Weeks - Needs appt with Psych
== END 2016-03-26 18:11 | disposition home or self-care (01) | DRG 774 ==
LOC: LC 14:21 → LR 15:18 → 2S 03-24 02:47
PROVIDERS: ADMIT Student in an Organized Health Care Education/Training Program; ATTEND Student in an Organized Health Care Education/Training Program
PROC: 10E0XZZ Delivery of Products of Conception, External Approach (ICD-10-PCS; principal; 2016-03-24)
PROC: 0UQMXZZ Repair Vulva, External Approach (ICD-10-PCS; 2016-03-24)
PROC: 0UQGXZZ Repair Vagina, External Approach (ICD-10-PCS; 2016-03-24)
PROC: 0HQ9XZZ Repair Perineum Skin, External Approach (ICD-10-PCS; 2016-03-24)
PROC: 0W8NXZZ Division of Female Perineum, External Approach (ICD-10-PCS; 2016-03-24)
PROC: 0U7C7ZZ Dilation of Cervix, Via Natural or Artificial Opening (ICD-10-PCS; 2016-03-24)
PROC: 10907ZC Drainage of Amniotic Fluid, Therapeutic from Products of Conception, Via Natural or Artificial Opening (ICD-10-PCS; 2016-03-24)
DX: O36.5930 Maternal care for other known or suspected poor fetal growth, third trimester, not applicable or unspecified (principal); O98.32 Other infections with a predominantly sexual mode of transmission complicating childbirth; O36.0930 Maternal care for other rhesus isoimmunization, third trimester, not applicable or unspecified; O98.42 Viral hepatitis complicating childbirth; O99.324 Drug use complicating childbirth; A60.00 Herpesviral infection of urogenital system, unspecified; B19.20 Unspecified viral hepatitis C without hepatic coma; O99.344 Other mental disorders complicating childbirth; F31.9 Bipolar disorder, unspecified; O32.6XX0 Maternal care for compound presentation, not applicable or unspecified; O71.82 Other specified trauma to perineum and vulva; O70.0 First degree perineal laceration during delivery; F19.90 Other psychoactive substance use, unspecified, uncomplicated; Z3A.39 39 weeks gestation of pregnancy; Z37.0 Single live birth; Z87.891 Personal history of nicotine dependence
CPT/HCPCS: 36415; 80053; 80307; 81005; 85027; 86592; 86850; 86870; 86900; 86901; 87210; 87491; 87591; 88307; 90686; C1726; J2590; J3490